=== PATIENT | female | born 1975 | race Caucasian/White ===

== ENCOUNTER → 2016-09-22 | Outpatient (CLI) | payer BC | LOC: RAD 14:48 | PROVIDERS: ATTEND Pain Medicine Interventional Pain Medicine | DX: M25.512 Pain in left shoulder (principal) ==

== ENCOUNTER 2016-10-17 19:56 | Emergency (ER) | payer BC ==
[2016-10-17] MEDS ORDERED: OXYCODONE-ACETAMINOPHEN 5-325 MG TABLET PO ONE (22:18)
[2016-10-17] MEDS ORDERED: PREDNISONE 20 MG TABLET PO ONE (22:19)
[2016-10-17] MEDS ORDERED: VALACYCLOVIR HCL 500 MG TABLET PO ONE (22:19)
--- NOTE | 2016-10-17 22:29 | ER Document Report ---
ED Skin Rash/Insect Bite/Abscs - General Chief Complaint: Rash Stated Complaint: RASH Time seen by provider: 22:15 Notes: Patient is a 41-year-old female that comes emergency department for chief complaint of a rash on her left mid upper back, symptoms started 2-1/2 days ago initially felt like a bruise, developed into painful symptoms, she states now there are fluid-filled areas that are itchy on top of this. Patient has had chickenpox as a child. Patient denies fevers, injury, denies any other symptoms. TRAVEL OUTSIDE OF THE [place] IN LAST 30 DAYS: No - Related Data Allergies/Adverse Reactions: atropine Allergy (Verified 10/17/16 20:33) ketorolac [From Toradol] Allergy (Verified 10/17/16 20:33) midazolam [From Versed] Allergy (Verified 10/17/16 20:33) nalbuphine [From Nubain] Allergy (Verified 10/17/16 20:33) Past Medical History - General Information source: Patient - Social History Smoking Status: Never Smoker Frequency of alcohol use: None Drug Abuse: None Lives with: Family Family History: CAD - Mother of [place] at 56 Patient has suicidal ideation: No Patient has homicidal ideation: No - Past Medical History Cardiac Medical History: Reports: Hx Hypertension Neurological Medical History: Denies: Hx Cerebrovascular Accident Endocrine Medical History: Denies: Hx Diabetes Mellitus Type 2 Renal/ Medical History: Denies: Hx Peritoneal Dialysis GI Medical History: Denies: Hx Liver Failure Musculoskeltal Medical History: Reports Hx Arthritis Psychiatric Medical History: Reports: Hx Depression - current Past Surgical History: Reports: Hx Orthopedic Surgery, Hx Tubal Ligation - Immunizations Immunizations up to date: Yes Review of Systems - Review of Systems Constitutional: No symptoms reported EENT: No symptoms reported Cardiovascular: No symptoms reported Respiratory: No symptoms reported Gastrointestinal: No symptoms reported Genitourinary: No symptoms reported Female Genitourinary: No symptoms reported Musculoskeletal: No symptoms reported Skin: See HPI Hematologic/Lymphatic: No symptoms reported Neurological/Psychological: No symptoms reported Physical Exam - Vital signs Vitals: Temp Pulse Resp BP Pulse Ox 98.5 F 104 H 20 133/78 H 98 10/17/16 20:33 10/17/16 20:33 10/17/16 20:33 10/17/16 20:33 10/17/16 20:33 Interpretation: Normal - General General appearance: Appears well, Alert In distress: None - HEENT Head: Normocephalic, Atraumatic Eyes: Normal Conjunctiva: Normal Extraocular movements intact: Yes Eyelashes: Normal Pupils: PERRL Sinus: Normal Nasal: Normal Mouth/Lips: Normal Mucous membranes: Normal Pharynx: Normal Neck: Normal - Respiratory Respiratory status: No respiratory distress Chest status: Nontender Breath sounds: Normal. No: Decreased air movement, Wheezing Chest palpation: Normal - Cardiovascular Rhythm: Regular. No: Tachycardia Heart sounds: Normal auscultation, S1 appreciated, S2 appreciated Murmur: No - Abdominal Inspection: Normal Distension: No distension Bowel sounds: Normal Tenderness: Nontender. No: Tender, Guarding Organomegaly: No organomegaly - Back Back: Normal, Nontender. No: Tender - Extremities General upper extremity: Normal inspection, Nontender, Normal color, Normal ROM , Normal temperature General lower extremity: Normal inspection, Nontender, Normal color, Normal ROM , Normal temperature, Normal weight bearing. No: Joshua's sign - Neurological Neuro grossly intact: Yes Cognition: Normal Orientation: AAOx4 [place] Coma Scale Eye Opening: Spontaneous Abhilash Coma Scale Verbal: Oriented Abhilash Coma Scale Motor: Obeys Commands [place] Coma Scale Total: 15 Speech: Normal Motor strength normal: LUE, RUE, LLE, RLE Sensory: Normal - Psychological Associated symptoms: Normal affect, Normal mood - Skin Skin Temperature: Warm Skin Moisture: Dry Skin Color: Normal Skin irregularity: other - There is a erythematous patchy vesicular rash over the left upper back in the distribution of the dermatome. No surrounding erythema, no pustules, no induration Course - Re-evaluation Re-evalutation: Examination is consistent with herpes zoster rash, initiating treatment, symptoms been present less than 72 hours. Discussed follow-up, return precautions, patient states understanding and agreement. - Vital Signs Vital signs: Temp Pulse Resp BP Pulse Ox 98.5 F 93 18 116/82 98 10/17/16 20:33 10/17/16 23:20 10/17/16 23:20 10/17/16 23:20 10/17/16 20:33 Discharge - Discharge Clinical Impression: Rash Condition: Stable Disposition: HOME, SELF-CARE Additional Instructions: Examination and symptoms are consistent with a herpes zoster outbreak (shingles) . Take the antiviral as prescribed, take prednisone as prescribed, take the pain medication if needed. Follow-up with your primary care provider for additional management. Return to emergency department for any concerning symptoms. Prescriptions: Oxycodone HCl/Acetaminophen [Percocet 5-325 mg Tablet] 1 - 2 tab PO Q4H PRN #25 tablet PRN Reason: Prednisone [Deltasone 10 mg Tablet] 10 mg PO ASDIR PRN #74 tablet PRN Reason: Valacyclovir HCl [Valtrex] 1,000 mg PO TID #21 tablet Referrals: SHEA ALVARADO MD [Primary Care Provider] - Follow up as needed
[2016-10-17 23:40] VITALS: BP 116/82
== END 2016-10-17 23:20 | disposition home or self-care (01) ==
LOC: ER 19:56
DX: R21 Rash and other nonspecific skin eruption (principal); M54.6 Pain in thoracic spine
CPT/HCPCS: 99282; J7512

== ENCOUNTER 2016-12-13 19:48 | Emergency (ER) | payer BC ==
--- NOTE | 2016-12-13 21:45 | RADIOLOGY REPORT (SQ) ---
EXAM DESCRIPTION: HAND RIGHT 3 VIEWS COMPLETED DATE/TIME: 12/13/2016 9:27 pm REASON FOR STUDY: hand injury COMPARISON: None. EXAM PARAMETERS: NUMBER OF VIEWS: Three views. TECHNIQUE: AP, lateral and oblique radiographic images acquired of the right hand. LIMITATIONS: None. FINDINGS: MINERALIZATION: Normal. BONES: No acute fracture or dislocation. No worrisome bone lesions. JOINTS: No effusions. SOFT TISSUES: No soft tissue swelling. No foreign body. OTHER: No other significant finding. IMPRESSION: NEGATIVE STUDY OF THE RIGHT HAND. NO RADIOGRAPHIC EVIDENCE OF ACUTE INJURY. TECHNICAL DOCUMENTATION: JOB ID: [id number] [employer]- All Rights Reserved
--- NOTE | 2016-12-13 22:02 | ER Document Report ---
ED General - General Chief Complaint: Hand Injury Stated Complaint: RIGHT HAND PAIN Time Seen by Provider: 12/13/16 20:20 Mode of Arrival: Ambulatory Information source: Patient Notes: 41-year-old female presents with complaints of knuckle pain. Patient notes that she cracked his knuckles her whole life and now it is starting to hurt. Patient notes the pain has been constant and worsens when she cracks her knuckle. TRAVEL OUTSIDE OF THE [place] IN LAST 30 DAYS: No - HPI Onset: Other Onset/Duration: Persistent Quality of pain: Achy Severity: Mild Pain Level: 1 Associated symptoms: Other Exacerbated by: Movement Relieved by: Denies Similar symptoms previously: Yes Recently seen / treated by doctor: No - Related Data Allergies/Adverse Reactions: atropine Allergy (Verified 10/17/16 20:33) ketorolac [From Toradol] Allergy (Verified 10/17/16 20:33) midazolam [From Versed] Allergy (Verified 10/17/16 20:33) nalbuphine [From Nubain] Allergy (Verified 10/17/16 20:33) Past Medical History - Social History Smoking Status: Never Smoker Cigarette use (# per day): No Chew tobacco use (# tins/day): No Smoking Education Provided: No Family History: CAD - Mother of [place] at 56 - Past Medical History Cardiac Medical History: Reports: Hx Hypertension Neurological Medical History: Denies: Hx Cerebrovascular Accident Endocrine Medical History: Denies: Hx Diabetes Mellitus Type 2 Renal/ Medical History: Denies: Hx Peritoneal Dialysis GI Medical History: Denies: Hx Liver Failure Musculoskeltal Medical History: Reports Hx Arthritis Psychiatric Medical History: Reports: Hx Depression - current Past Surgical History: Reports: Hx Orthopedic Surgery, Hx Tubal Ligation - Immunizations Immunizations up to date: Yes Hx Diphtheria, Pertussis, Tetanus Vaccination: No Review of Systems - Review of Systems Notes: REVIEW OF SYSTEMS: CONSTITUTIONAL : Denies fever, chills, or sweats. Denies recent illness. EENT: Denies eye, ear, throat, or mouth pain or symptoms. Denies nasal or sinus congestion or discharge. Denies throat, tongue, or mouth swelling or difficulty swallowing. CARDIOVASCULAR: Denies chest pain. Denies palpitations or racing or irregular heart beat. Denies ankle edema. RESPIRATORY: Denies cough, cold, or chest congestion. Denies shortness of breath, difficulty breathing, or wheezing. GASTROINTESTINAL: Denies abdominal pain or distention. Denies nausea, vomiting , or diarrhea. Denies blood in vomitus, stools, or per rectum. Denies black, tarry stools. Denies constipation. GENITOURINARY: Denies difficulty urinating, painful urination, burning, frequency, blood in urine, or discharge. FEMALE GENITOURINARY: Denies vaginal bleeding, heavy or abnormal periods, irregular periods. Denies vaginal discharge or odor. MUSCULOSKELETAL: Admits to knuckle pain SKIN: Denies rash, lesions or sores. HEMATOLOGIC : Denies easy bruising or bleeding. LYMPHATIC: Denies swollen, enlarged glands. NEUROLOGICAL: Denies confusion or altered mental status. Denies passing out or loss of consciousness. Denies dizziness or lightheadedness. Denies headache. Denies weakness or paralysis or loss of use of either side. Denies problems with gait or speech. Denies sensory loss, numbness, or tingling. Denies seizures. PSYCHIATRIC: Denies anxiety or stress. Denies depression, suicidal ideation, or homicidal ideation. ALL OTHER SYSTEMS REVIEWED AND NEGATIVE. PHYSICAL EXAMINATION: GENERAL: Well-appearing, well-nourished and in no acute distress. HEAD: Atraumatic, normocephalic. EYES: Pupils equal round and reactive to light, extraocular movements intact, conjunctiva are normal. ENT: Nares patent, oropharynx clear without exudates. Moist mucous membranes. NECK: Normal range of motion, supple without lymphadenopathy LUNGS: Breath sounds clear to auscultation bilaterally and equal. No wheezes rales or rhonchi. HEART: Regular rate and rhythm without murmurs ABDOMEN: Soft, nontender, nondistended abdomen. No guarding, no rebound. No masses appreciated. Female : deferred Musculoskeletal: Normal range of motion, no pitting or edema. No cyanosis. NEUROLOGICAL: Cranial nerves grossly intact. Normal speech, normal gait. Normal sensory, motor exams PSYCH: Normal mood, normal affect. SKIN: Warm, Dry, normal turgor, no rashes or lesions noted. Dictation was performed using [employer] voice recognition software Physical Exam - Vital signs Vitals: Temp Pulse Resp BP Pulse Ox 98.0 F 107 H 20 127/87 H 99 12/13/16 20:10 12/13/16 20:10 12/13/16 20:10 12/13/16 20:10 12/13/16 20:10 Course - Re-evaluation Re-evalutation: 12/14/16 01:42 Physical examination notes no significant abnormality, patient is worried that cracking her knuckles is causing severe pain. I have encouraged her not to crack her knuckles X-ray noted no acute abnormality no life-threatening issues are noted patient is medically stable After performing a Medical Screening Examination, I estimate there is LOW risk for INTRACRANIAL HEMORRHAGE, UNSTABLE SPINE FRACTURE, CENTRAL CORD SYNDROME, CAUDA EQUINA, THORACIC AORTIC DISSECTION, PNEUMOTHORAX, PERFORATED BOWEL, RUPTURED ABDOMINAL AORTIC ANEURYSM, ACUTE TENDON RUPTURE, COMPARTMENT SYNDROME, or OPEN FRACTURE, thus I consider the discharge disposition reasonable. Also, there is no evidence or peritonitis, sepsis, or toxicity. I have reevaluated this patient multiple times and no significant life threatening changes are noted. The patient and I have discussed the diagnosis and risks, and we agree with discharging home to follow-up with their primary doctor with the understanding that symptoms and presentations can change. We also discussed returning to the Emergency Department immediately if new or worsening symptoms occur. We have discussed the symptoms which are most concerning (e.g., bloody stool, fever, changing or worsening pain, vomiting) that necessitate immediate return. - Vital Signs Vital signs: Temp Pulse Resp BP Pulse Ox 98.3 F 18 L 18 113/84 97 12/13/16 22:25 12/13/16 22:25 12/13/16 22:25 12/13/16 22:25 12/13/16 22:25 - Diagnostic Test Radiology reviewed: Image reviewed, Reports reviewed - No acute fracture no life -threatening issues report given to patient Discharge - Discharge Clinical Impression: knuckle pain Hand pain Qualifiers: Laterality: right Qualified Code(s): M79.641 - Pain in right hand Condition: Stable Disposition: HOME, SELF-CARE Instructions: Contusion (OM) Referrals: SHEA ALVARADO MD [Primary Care Provider] - Follow up tomorrow
[2016-12-13 22:27] VITALS: BP 113/84
== END 2016-12-13 22:24 | disposition home or self-care (01) ==
LOC: ER 19:48
DX: M25.541 Pain in joints of right hand (principal); I10 Essential (primary) hypertension; Z88.4 Allergy status to anesthetic agent; Z88.5 Allergy status to narcotic agent; Z88.8 Allergy status to other drugs, medicaments and biological substances
CPT/HCPCS: 99283

== ENCOUNTER → 2017-01-18 | Outpatient (CLI) | payer BC ==
[~2017-01-18] MED LIST: DIAZEPAM 5 MG TABLET ONE
--- NOTE | 2017-01-18 15:30 | RADIOLOGY REPORT (SQ) ---
EXAM DESCRIPTION: MRI HEAD COMBO COMPLETED DATE/TIME: 01/18/2017 3:09 pm REASON FOR STUDY: VERTIGO H81.41 VERTIGO OF CENTRAL ORIGIN, RIGHT EAR COMPARISON: CT dated 04/29/2016. TECHNIQUE: Multiplanar imaging includes non-contrasted T1, T2, FLAIR, diffusion with ADC map and pos t gadolinium contrast sequences. Additional thin slice images with and without gadolinium contrast a cquired in the posterior fossa. Images stored on PACS. CONTRAST TYPE AND DOSE: 15 mL Multihance. RENAL FUNCTION: GFR > 60. LIMITATIONS: None. FINDINGS: ANATOMY: No anomalies. Normal vascular flow voids. Pituitary fossa normal. CSF SPACES: Normal in size and contour. CEREBRUM: Sulci and gyri normal in size and contour. Normal white matter signal on FLAIR imaging. N o hemorrhage. No edema, masses or mass effect. No enhancing lesions. POSTERIOR FOSSA: No signal alteration. No hemorrhage. No edema, masses or mass effect. Internal eduardo tory canals, cerebello-pontine angles, mastoids normal. No enhancing lesions. Detailed imaging of the 5th, 7th, and 8th nerves and [place] within normal limits. DIFFUSION IMAGING: Negative for acute or sub-acute infarction. ORBITS: No masses. Globes normal. PARANASAL SINUSES: No fluid levels. Mucosa normal. OTHER: No other significant finding. IMPRESSION: NORMAL MRI OF THE BRAIN AND POSTERIOR FOSSA WITHOUT AND WITH INTRAVENOUS GADOLINIUM CONT RAST. TECHNICAL DOCUMENTATION: JOB ID: [id number]- All Rights Reserved
== END ==
LOC: RAD 11:58
PROVIDERS: ATTEND Internal Medicine
DX: H81.41 Vertigo of central origin, right ear (principal)
CPT/HCPCS: 82565; 70553; A9577

== ENCOUNTER 2017-02-10 05:25 | Day surgery (SDC) | payer BC ==
[2017-02-08 11:14] LABS: APPEARANCE,URINE CLEAR; BILIRUBIN,URINE NEGATIVE (NEGATIVE); GLUCOSE, URINE NEGATIVE (NEGATIVE); KETONES,URINE NEGATIVE (NEGATIVE); LEUKOCYTE ESTERASE,URINE NEGATIVE (NEGATIVE); NITRITE,URINE NEGATIVE (NEGATIVE); PROTEIN,URINE NEGATIVE (NEGATIVE); URINE SPECIFIC GRAVITY 1.008; UROBILINOGEN,URINE NEGATIVE mg/dL (<2.0)
[2017-02-08 12:13] LABS: HEMATOCRIT 32.2 % (36.0-47.0); HGB HCT DIFFERENCE 0.8; MEAN CORPUSCULAR HEMOGLOBIN 28.5 pg (27.0-33.4); MEAN CORPUSCULAR VOLUME 84 fl (80-97); RED BLOOD COUNT 3.84 10^6/uL (3.72-5.28); RED CELL DISTRIBUTION WIDTH 14.3 % (11.5-14.0); WHITE BLOOD COUNT 7.6 10^3/uL (4.0-10.5)
[2017-02-08 12:42] LABS: ANION GAP 14 (5-19); BLOOD UREA NITROGEN 14 mg/dL (7-20); CALCIUM 9.5 mg/dL (8.4-10.2); CARBON DIOXIDE 25 mmol/L (22-30); CHLORIDE 99 mmol/L (98-107); CREATININE RESULT 0.93 mg/dL (0.52-1.25); GLUCOSE 119 mg/dL (75-110); POTASSIUM 4.3 mmol/L (3.6-5.0); SODIUM 137.6 mmol/L (137-145)
--- NOTE | 2017-02-08 13:26 | RADIOLOGY REPORT (SQ) ---
EXAM DESCRIPTION: CHEST PA/LATERAL COMPLETED DATE/TIME: 02/08/2017 12:03 pm REASON FOR STUDY: PRE OP COMPARISON: 02/07/2015 EXAM PARAMETERS: NUMBER OF VIEWS: two views TECHNIQUE: Digital Frontal and Lateral radiographic views of the chest acquired. RADIATION DOSE: NA LIMITATIONS: none FINDINGS: LUNGS AND PLEURA: No opacities, masses or pneumothorax. No pleural effusion. MEDIASTINUM AND HILAR STRUCTURES: No masses or contour abnormalities. HEART AND VASCULAR STRUCTURES: Heart normal size. No evidence for failure. BONES: No acute findings. HARDWARE: None in the chest. OTHER: No other significant finding. IMPRESSION: NO SIGNIFICANT RADIOGRAPHIC FINDING IN THE CHEST. TECHNICAL DOCUMENTATION: JOB ID: [id number] [employer]- All Rights Reserved
--- NOTE | 2017-02-08 20:14 | EKG REPORT ---
SEVERITY:- BORDERLINE ECG - SINUS RHYTHM LOW VOLTAGE THROUGHOUT : Confirmed by: Kiran Suresh 08-Feb-2017 20:12:53
[~2017-02-10 05:25] MED LIST changes: +CEFAZOLIN 1 GM/D5W RTU 1 GM/50 ML RTUPB IV PRN; -DIAZEPAM 5 MG TABLET ONE; +LIDOCAINE 0.5% INJ-PF (5 MG/ML) 50 ML SDV SUBCUT PRN
[2017-02-10] MEDS ORDERED: FENTANYL CITRATE INJ/PF 250 MCG/5 ML AMPULE ONE (06:46)
[2017-02-10] MEDS ORDERED: MIDAZOLAM 2 MG/2 ML INJ ONE (06:47)
[2017-02-10] MEDS ORDERED: FENTANYL CITRATE INJ/PF 100 MCG/2 ML AMPUL ONE (06:47)
[2017-02-10] MEDS ORDERED: ACETAMINOPHEN 0 ML IV ONE (06:48)
[2017-02-10] MEDS ORDERED: PROPOFOL INJ 200 MG/20 ML VIAL IV ONE (06:48)
[2017-02-10] MEDS ORDERED: IBUPROFEN INJ 800 MG/8 ML VIAL IV ONE (06:48)
[2017-02-10] MEDS ORDERED: MORPHINE SULFATE 10 MG/ML INJ ONE (06:49)
[2017-02-10] MEDS ORDERED: LIDOCAINE 2%/EPINEPHRINE INJ 20 ML VIAL ONE (07:30)
[2017-02-10] MEDS ORDERED: FENTANYL CITRATE INJ/PF 100 MCG/2 ML AMPUL IV PRN ×3 (08:12)
[2017-02-10] MEDS ORDERED: ONDANSETRON HCL INJ/PF 4 MG/2 ML SDV IV PRN (08:12)
--- NOTE | 2017-02-10 09:02 | OPERATIVE REPORT E ---
Operative Report NAME: CHRIST HONEYCUTT : 1975 AGE: 42Y DATE OF SURGERY: 02/10/2017 ROOM: PREOPERATIVE DIAGNOSES: 1. Menorrhagia. 2. History of high grade KRISTINA Pap's unresponsive to cryotherapy, conization, and multiple treatments. POSTOPERATIVE DIAGNOSES: 1. Menorrhagia. 2. History of high grade KRISTINA Pap's unresponsive to cryotherapy, conization, and multiple treatments. 3. Uterine fibroid. PROCEDURE: Total vaginal hysterectomy with Ryan culdoplasty. SURGEON: MACIEJ APONTE M.D. COMPLICATIONS: None. ANESTHESIA: General endotracheal. FINDINGS: A normal appearing uterus with a subserosal fibroid. Normal appearing tubes and ovaries are appreciated. Bilateral Hulka clips were noted and removed during the case and handed off the operative field. INDICATIONS FOR PROCEDURE: Patient had been unresponsive to usual outpatient management for MARGARITA lesions. She had a positive margin on her LEEP with abnormal bleeding and recurrent MARGARITA on Pap smears. She elected to proceed to definitive therapy. The usual risks of bleeding, infection, anesthesia, damage to organs and tissues had been discussed and the patient understood. PROCEDURE: Patient was taken to the operating room and was placed in the modified lithotomy position after adequate anesthesia ascertained. Prepped and draped in the usual manner for a vaginal hysterectomy. After EUA had been performed, surgical timeout performed, Cardoso catheter inserted in the bladder. Posterior colpotomy was performed without difficulty and the uterosacral ligaments were cross-clamped, cut, suture ligated, and held. The cervix was circumscribed and the bladder was advanced sequentially as the LigaSure Advance device was used for cautery of the cardinal ligament up to the level of the uterine vessels and up to the level of the upper fundus. The anterior cul-de-sac was entered without difficulty during this aspect of the procedure. A Duncan retractor was placed, reflecting the ureters throughout the case. The uterus was brought into the operative field. The upper pedicles were suture ligated and cauterized inclusive of the Hulka clips bilaterally. Ovaries were well visualized and noted to be normal. The Ryan culdoplasty stitches were placed and held. The vagina was then closed in an anterior/posterior fashion with noted hemostasis assured. Ryan culdoplasty stitch was tied at the end of the case. Patient awaken and taken to recovery in stable condition. Estimated blood loss approximately 50 mL. DICTATING PHYSICIAN: MACIEJ APONTE M.D. [id number] PHY#: [id number] ID: [id number] JOB#: [id number] ACCT: [id number] cc:MACIEJ APONTE M.D. >
[2017-02-10] MEDS ORDERED: PROMETHAZINE HCL INJ 25 MG/1 ML VIAL IM PRN (09:30)
[2017-02-10] MEDS ORDERED: MORPHINE INJ 8 MG DOSE IM PRN (09:30)
[2017-02-10] MEDS ORDERED: MORPHINE INJ 6 MG DOSE (EDIT ROUTE) INJ PRN (09:30)
[2017-02-10] MEDS ORDERED: ACETAMINOPHEN 100 ML IV ONE (09:35)
[2017-02-10] MEDS ORDERED: SCOPOLAMINE HYDROBROMIDE 1.5 MG PATCH.TD72 ONE (09:54)
[2017-02-10] MEDS ORDERED: METOCLOPRAMIDE HCL INJ/PF 10 MG/2 ML SDV ONE (09:54)
[2017-02-10] MEDS ORDERED: ONDANSETRON HCL INJ/PF 4 MG/2 ML SDV ONE (09:56)
[2017-02-10] MEDS ORDERED: DEXAMETHASONE SOD PHOSPHATE INJ 4 MG/1 ML VIAL ONE (09:56)
[2017-02-10] MEDS ORDERED: SUCCINYLCHOLINE CHLORIDE INJ 200 MG/10 ML VIAL ONE (09:56)
[2017-02-10] MEDS ORDERED: GLYCOPYRROLATE INJ 0.4 MG/2 ML VIAL ONE (09:56)
[2017-02-10] MEDS ORDERED: LIDOCAINE 2% INJ-PF (20 MG/ML) 10 ML AMPUL ONE (09:56)
[2017-02-10] MEDS ORDERED: (PENDING PHARMACY ID) (Quetiapine Fumarate [Seroquel] 200 MG) PO SCH (10:00)
[2017-02-10] MEDS ORDERED: (PENDING PHARMACY ID) (Lisinopril/Hydrochlorothiazide [Lisinopril-Hctz 20-12.5 Mg Tab] 1 E PO SCH (10:00)
[2017-02-10] MEDS ORDERED: AMITRIPTYLINE HCL 25 MG TABLET PO SCH (10:00)
[2017-02-10] MEDS: MORPHINE INJ 4 MG DOSE (EDIT ROUTE) INJ PRN ×2 (11:01→13:08)
[2017-02-10] MEDS: IBUPROFEN 800 MG TABLET PO SCH ×2 (13:06→20:53)
[2017-02-10] MEDS: LACTATED RINGERS 1000 ML IV PRN ×2 (13:46→22:38)
[2017-02-10] MEDS: CEFAZOLIN 1 GM RTU (EDIT START TIME) IV SCH ×2 (14:50→20:08)
[2017-02-10] MEDS: OXYCODONE-ACETAMINOPHEN 5-325 MG TABLET PO PRN ×2 (16:51→20:53)
[2017-02-10] MEDS ORDERED: QUETIAPINE FUMARATE 100 MG TABLET PO SCH (22:00)
[2017-02-11] MEDS: IBUPROFEN 800 MG TABLET PO SCH (04:52)
[2017-02-11] MEDS: OXYCODONE-ACETAMINOPHEN 5-325 MG TABLET PO PRN (04:53)
[2017-02-11 06:30] LABS: MEAN CORPUSCULAR HEMOGLOBIN 28.1 pg (27.0-33.4); MEAN CORPUSCULAR HGB CONC 33.4 g/dL (32.0-36.0); MEAN CORPUSCULAR VOLUME 84 fl (80-97); RED BLOOD COUNT 3.21 10^6/uL (3.72-5.28); RED CELL DISTRIBUTION WIDTH 14.4 % (11.5-14.0)
[2017-02-11] MEDS ORDERED: LANSOPRAZOLE 30 MG TAB.RAP.DR PO SCH (08:00)
[2017-02-11 09:00] VITALS: BP 105/74
[2017-02-11] MEDS ORDERED: HYDROCHLOROTHIAZIDE 12.5 MG CAPSULE PO SCH (10:00)
[2017-02-11] MEDS ORDERED: QUETIAPINE FUMARATE 100 MG TABLET PO SCH ×2 (10:00→22:00)
[2017-02-11] MEDS ORDERED: LISINOPRIL 10 MG TABLET PO SCH (10:00)
== END 2017-02-11 09:24 | disposition home or self-care (01) ==
LOC: OROUT 05:25 → 2N 10:09 → UNDOADMIN 10:59 → OROUT 02-11 09:24 → UNDODISIN 02-11 09:24
PROVIDERS: ATTEND Specialist
PROC: 0UTC7ZZ Resection of Cervix, Via Natural or Artificial Opening (ICD-10-PCS; 2017-02-10)
PROC: 0UT57ZZ Resection of Right Fallopian Tube, Via Natural or Artificial Opening (ICD-10-PCS; 2017-02-10)
PROC: 0UT97ZZ Resection of Uterus, Via Natural or Artificial Opening (ICD-10-PCS; principal; 2017-02-10 07:15)
DX: N94.5 Secondary dysmenorrhea (principal); N87.0 Mild cervical dysplasia; N84.0 Polyp of corpus uteri; D25.9 Leiomyoma of uterus, unspecified; N92.0 Excessive and frequent menstruation with regular cycle; R01.1 Cardiac murmur, unspecified; I10 Essential (primary) hypertension; M06.9 Rheumatoid arthritis, unspecified; F32.9 Major depressive disorder, single episode, unspecified; E66.9 Obesity, unspecified; Z68.30 Body mass index [BMI] 30.0-30.9, adult; Z79.891 Long term (current) use of opiate analgesic; Z79.899 Other long term (current) drug therapy
CPT/HCPCS: 93005; 86900; 86901; 36415 ×2; 86850; 82962; 85027 ×2; 81025; 80048; 81001; 88307 ×2; 71020; 94799; 93010; 58262; J2250; J0690; J1100; J3010 ×2; J3490 ×2; J2765; J2270; J0330; J2405; J7120; J2704; J0131; 944; J1741

== ENCOUNTER 2017-05-31 22:16 | Emergency (ER) | payer BC ==
[2017-06-01] MEDS ORDERED: NORMAL SALINE 1000 ML 1,000 ML IV ONE
[2017-06-01 00:12] LABS: ABSOLUTE BASOPHILS # (AUTO) 0.1 10^3/uL (0.0-0.2); ABSOLUTE EOSINOPHILS # (AUTO) 0.1 10^3/uL (0.0-0.6); ABSOLUTE LYMPHOCYTES (AUTO) 2.9 10^3/uL (0.5-4.7); ABSOLUTE MONOCYTES (AUTO) 0.7 10^3/uL (0.1-1.4); ABSOLUTE NEUT (AUTO) 10.3 10^3/uL (1.7-8.2); BASOPHILS % (AUTO) 0.6 % (0-2); EOSINOPHILS % (AUTO) 0.9 % (0-6); HEMOGLOBIN 12.2 g/dL (12.0-15.5); HGB HCT DIFFERENCE -0.4; LYMPHOCYTES % (AUTO) 20.6 % (13-45); MEAN CORPUSCULAR HEMOGLOBIN 27.6 pg (27.0-33.4); MEAN CORPUSCULAR HGB CONC 32.9 g/dL (32.0-36.0); MEAN CORPUSCULAR VOLUME 84 fl (80-97); MONOCYTES % (AUTO) 4.7 % (3-13); RED BLOOD COUNT 4.41 10^6/uL (3.72-5.28); RED CELL DISTRIBUTION WIDTH 15.1 % (11.5-14.0); SEGMENTED NEUTROPHILS % (AUTO) 73.2 % (42-78); WHITE BLOOD COUNT 14.1 10^3/uL (4.0-10.5)
--- NOTE | 2017-06-01 00:25 | ER Document Report ---
ED General - General Chief Complaint: Syncope Stated Complaint: WEAKNESS Time Seen by Provider: 05/31/17 23:59 Notes: Patient is a 42-year-old female without prior cardiac history who presents after she had an episode of syncope while in the shower. Patient states that all day today she felt intermittently lightheaded when she would go from a sitting to standing position and felt as though she was about to pass out several times during the day. She states when she was standing in the shower today she became lightheaded, nauseated and felt like she was about to pass out. She states she stepped out of the shower, was trying dry herself off when she lost consciousness. She denies sustaining any injury during that episode of syncope. She states that since that time she has felt "fuzzy" in her head as well as slightly dehydrated. She does note that she has not drank hardly any fluids today. She has no history of similar symptoms in the past. Nothing improves or worsens her symptoms. She has not seen her primary care doctor regarding today's concerns. She denies any associated chest pain, shortness of breath, headache, neck pain, unilateral leg swelling, hemoptysis, or abdominal pain. She denies any prior history of DVT or pulmonary embolus. TRAVEL OUTSIDE OF THE [place] IN LAST 30 DAYS: No - Related Data Allergies/Adverse Reactions: atropine Allergy (Severe, Verified 05/31/17 22:17) violent ketorolac [From Toradol] Allergy (Severe, Verified 05/31/17 22:17) tremors midazolam [From Versed] Allergy (Severe, Verified 05/31/17 22:17) violent nalbuphine [From Nubain] Allergy (Severe, Verified 05/31/17 22:17) violent Past Medical History - General Information source: Patient - Social History Smoking Status: Never Smoker Frequency of alcohol use: None Drug Abuse: None Lives with: Spouse/Significant other Family History: CAD - Mother of [place] at 56 Patient has suicidal ideation: No Patient has homicidal ideation: No - Past Medical History Cardiac Medical History: Reports: Hx Hypertension - on meds Denies: Hx Coronary Artery Disease, Hx Heart Attack Pulmonary Medical History: Denies: Hx Asthma, Hx Bronchitis, Hx COPD, Hx Pneumonia Neurological Medical History: Denies: Hx Cerebrovascular Accident, Hx Seizures Endocrine Medical History: Denies: Hx Diabetes Mellitus Type 2 Renal/ Medical History: Denies: Hx Peritoneal Dialysis GI Medical History: Denies: Hx Liver Failure Musculoskeltal Medical History: Denies Hx Arthritis Psychiatric Medical History: Reports: Hx Depression - current Past Surgical History: Reports: Hx Hysterectomy, Hx Orthopedic Surgery, Hx Tubal Ligation - Immunizations Immunizations up to date: Yes Hx Diphtheria, Pertussis, Tetanus Vaccination: No Review of Systems - Review of Systems Notes: Constitutional: Negative for fever. HENT: Negative for sore throat. Eyes: Negative for visual changes. Cardiovascular: Negative for chest pain. Positive for syncope Respiratory: Negative for shortness of breath. Gastrointestinal: Negative for abdominal pain, vomiting or diarrhea. Genitourinary: Negative for dysuria. Musculoskeletal: Negative for back pain. Skin: Negative for rash. Neurological: Negative for headaches, weakness or numbness. 10 point ROS negative except as marked above and in HPI. Physical Exam - Vital signs Vitals: Temp Pulse BP Pulse Ox 97.7 F 124 H 90/57 L 99 05/31/17 22:40 05/31/17 22:40 05/31/17 22:40 05/31/17 22:40 Interpretation: Hypotensive, Tachycardic Notes: PHYSICAL EXAMINATION: GENERAL: Well-appearing, well-nourished and in no acute distress. HEAD: Atraumatic, normocephalic. EYES: Pupils equal round and reactive to light, extraocular movements intact, sclera anicteric, conjunctiva are normal. ENT: nares patent, oropharynx clear without exudates. Dry t mucous membranes. NECK: Normal range of motion, supple without lymphadenopathy LUNGS: Breath sounds clear to auscultation bilaterally and equal. No wheezes rales or rhonchi. HEART: Regular tachycardia without murmurs ABDOMEN: Soft, nontender, normoactive bowel sounds. No guarding, no rebound. No masses appreciated. EXTREMITIES: Normal range of motion, no pitting or edema. No cyanosis. NEUROLOGICAL: No focal neurological deficits. Moves all extremities spontaneously and on command. PSYCH: Normal mood, normal affect. SKIN: Warm, Dry, normal turgor, no rashes or lesions noted. Course - Re-evaluation Re-evalutation: 06/01/17 00:25 Presentation of syncope of unclear etiology although given patient's report of positional lightheadedness all day today as well as a mild acute kidney injury on chemistries I do suspect that this is due to dehydration. Patient normotensive, alert, without focal neurologic deficits at time of arrival. Denies syncope was during exertion. No preceding symptoms of palpitations, chest pain, or shortness of breath. Patient asymptomatic at time of arrival. EKG is without evidence of HCOM, right heart strain, ST changes to suggest ischemia, prolong QTc, delta wave, epsilon wave, or Brugada syndrome. Patient denies any family history of sudden cardiac , personal history of of structural heart disease. Patient denies any symptoms to suggest an acute PE, NC , TAD, SAH, seizure, or acute GI bleed as the etiology of their syncope today. On exam, no murmurs to suggest critical aortic stenosis as possible etiology. Based on overall clinical history, exam findings, vitals, and patients appearance, I feel it is safe for patient to be discharged home at this time with close outpatient follow-up and strict return precautions. Patient is in agreement with this plan, has verbalized indications for return to ED, and questions have been answered. - Vital Signs Vital signs: Temp Pulse Resp BP Pulse Ox 97.7 F 120 H 18 87/51 L 98 05/31/17 22:41 05/31/17 23:45 05/31/17 23:45 05/31/17 23:45 05/31/17 23:45 - Laboratory Result Diagrams: 05/31/17 23:55 05/31/17 23:55 Laboratory results interpreted by me: 05/31/17 05/31/17 23:55 23:55 WBC 14.1 H RDW 15.1 H Plt Count 466 H Absolute Neutrophils 10.3 H Sodium 136.9 L Chloride 95 L BUN 28 H Creatinine 1.35 H Est GFR ( Amer) 52 L Est GFR (Non-Af Amer) 43 L - EKG Interpretation by Me Additional EKG results interpreted by me: 06/01/17 01:12 Normal sinus rhythm. Rate 89. No ST elevations or depressions. QTC is 463. Discharge - Discharge Clinical Impression: Dehydration Syncope Qualifiers: Syncope type: unspecified Qualified Code(s): R55 - Syncope and collapse Condition: Good Disposition: HOME, SELF-CARE Additional Instructions: You were seen today after an episode of passing out. Your EKG here is normal. At this time, we do not feel that your episode of passing out was from any life- threatening cause. Your labs suggest that this is likely due to dehydration and you have been provided IV fluids while here in the emergency department. Please drink plenty of fluids over the next several days. Return to emergency department if you have any further episodes of syncope, headache, weakness, numbness, chest pain, or shortness of breath. Please follow up closely with your primary care physician. Referrals: SHEA ALVARADO MD [Primary Care Provider] - Follow up as needed
[2017-06-01 00:38] LABS: ANION GAP 17 (5-19); BLOOD UREA NITROGEN 28 mg/dL (7-20); CARBON DIOXIDE 25 mmol/L (22-30); CHLORIDE 95 mmol/L (98-107); CREATININE RESULT 1.35 mg/dL (0.52-1.25); GLUCOSE 106 mg/dL (75-110); POTASSIUM 4.6 mmol/L (3.6-5.0); SODIUM 136.9 mmol/L (137-145)
[2017-06-01 01:31] VITALS: BP 101/75
--- NOTE | 2017-06-01 08:08 | EKG REPORT ---
SEVERITY:- NORMAL ECG - SINUS RHYTHM : Confirmed by: Kiran Suresh 01-Jun-2017 08:07:52
== END 2017-06-01 01:33 | disposition home or self-care (01) ==
LOC: ER 22:16
DX: E86.0 Dehydration (principal); R55 Syncope and collapse; R53.1 Weakness; I10 Essential (primary) hypertension; Z90.710 Acquired absence of both cervix and uterus
CPT/HCPCS: 93005; 99284; 36415; 84703; 85025; 80048; 93010; J7030; 80053; 82550; 82553; 84484; 96360

== ENCOUNTER 2017-07-04 00:03 | Emergency (ER) | payer BC ==
[2017-07-04 01:06] VITALS: BP 112/72
--- NOTE | 2017-07-04 01:35 | ER Document Report ---
HPI - HPI Patient complains to provider of: Left shoulder pain Onset: Other - 1 month Onset/Duration: Persistent Quality of pain: Achy, Throbbing Pain Level: 4 Context: Patient states that she has had a history of chronic right shoulder joint pain. Patient states because of this she has been compensating with her left upper extremity. Patient reports left shoulder joint pain for the past month. Patient states pain will radiate down to the level of her elbow. Patient denies any fever. Patient denies any new injury. Patient does take chronic narcotics for right shoulder joint pain, but denies any improvement in her left shoulder joint pain. Patient is concerned something is wrong and would like to have a shoulder x-ray. Associated Symptoms: denies: Fever Exacerbated by: Movement Relieved by: Denies Similar symptoms previously: No Recently seen / treated by doctor: No - ROS ROS below otherwise negative: Yes Systems Reviewed and Negative: Yes All other systems reviewed and negative - CONSTITUTIONAL Constitutional: DENIES: Fever - NEURO Neurology: DENIES: Headache, Weakness - GASTROINTESTINAL Gastrointestinal: DENIES: Nausea - REPRODUCTIVE Reproductive: DENIES: : - MUSCULOSKELETAL Musculoskeletal: REPORTS: Extremity pain - left shoulder. DENIES: Back Pain - DERM Skin Color: Normal Skin Problems: None Past Medical History - General Information source: Patient - Social History Smoking Status: Unknown if Ever Smoked Frequency of alcohol use: None Drug Abuse: None Occupation: None Family History: CAD - Mother of [place] at 56 Patient has suicidal ideation: No Patient has homicidal ideation: No - Past Medical History Cardiac Medical History: Reports: Hx Hypertension - on meds Denies: Hx Coronary Artery Disease, Hx Heart Attack Pulmonary Medical History: Denies: Hx Asthma, Hx Bronchitis, Hx COPD, Hx Pneumonia Neurological Medical History: Denies: Hx Cerebrovascular Accident, Hx Seizures Endocrine Medical History: Denies: Hx Diabetes Mellitus Type 2 Renal/ Medical History: Denies: Hx Peritoneal Dialysis Malignancy Medical History: Reports: Hx Cervical Cancer GI Medical History: Denies: Hx Liver Failure Musculoskeltal Medical History: Denies Hx Arthritis Psychiatric Medical History: Reports: Hx Depression - current Past Surgical History: Reports: Hx Hysterectomy, Hx Orthopedic Surgery, Hx Tubal Ligation - Immunizations Immunizations up to date: Yes Hx Diphtheria, Pertussis, Tetanus Vaccination: No Vertical Provider Document - CONSTITUTIONAL Agree With Documented VS: Yes Exam Limitations: No Limitations General Appearance: WD/WN, No Apparent Distress - INFECTION CONTROL TRAVEL OUTSIDE OF THE [place] IN LAST 30 DAYS: No - HEENT HEENT: Atraumatic, Normocephalic - NECK Neck: Normal Inspection, Supple. negative: Lymphadenopathy-Left, Lymphadenopathy-Right Notes: No posterior cervical midline tenderness, step-off or deformity - RESPIRATORY Respiratory: Breath Sounds Normal, No Respiratory Distress O2 Sat by Pulse Oximetry: 98 - CARDIOVASCULAR Cardiovascular: Regular Rate, Regular Rhythm, No Murmur Pulses: Normal: Radial - BACK Back: Normal Inspection - MUSCULOSKELETAL/EXTREMETIES Musculoskeletal/Extremeties: MAEW, FROM, Tender - Left shoulder joint tenderness over glenohumoral joint, no dislocation, no deformity. Tenderness increases with extension and abduction. Normal skin color and temperature overlying joint, No Edema - NEURO Level of Consciousness: Awake, Alert, Appropriate Motor/Sensory: No Motor Deficit - DERM Integumentary: Warm, Dry, No Rash Course - Re-evaluation Re-evalutation: 07/04/17 01:42 x ray reviewed, no obvious bony abnormality. Patient encouraged to follow-up with primary doctor or orthopedic doctor for further evaluation and possible advanced imaging. Patient encouraged to continue gentle range of motion exercises. - Vital Signs Vital signs: Temp Pulse Resp BP Pulse Ox 97.7 F 106 H 18 112/72 98 07/04/17 01:05 07/04/17 01:05 07/04/17 01:05 07/04/17 01:05 07/04/17 01:05 - Diagnostic Test Radiology reviewed: Pending, Image reviewed Discharge - Discharge Clinical Impression: Pain, joint, shoulder, left Condition: Stable Disposition: HOME, SELF-CARE Instructions: Sprain ([facility]) Additional Instructions: Return immediately for any new or worsening symptoms Followup with your primary care provider, call tomorrow to make a followup appointment Follow-up with orthopedic doctor for further evaluation, call tomorrow for an appointment Referrals: [facility] [Provider Group] - Follow up as needed
--- NOTE | 2017-07-04 01:47 | RADIOLOGY REPORT (SQ) ---
EXAM DESCRIPTION: SHOULDER LEFT 2 OR MORE VIEWS CLINICAL HISTORY: shoulder joint pain COMPARISON: None. FINDINGS: 3 views of the left shoulder. No acute fracture or dislocation. Normal osseous mineralization. No left-sided rib fractures. IMPRESSION: 1. No acute fracture or dislocation.
== END 2017-07-04 01:48 | disposition home or self-care (01) ==
LOC: ER 00:03
DX: M25.512 Pain in left shoulder (principal); I10 Essential (primary) hypertension; Z90.710 Acquired absence of both cervix and uterus; Z85.41 Personal history of malignant neoplasm of cervix uteri
CPT/HCPCS: 99283

== ENCOUNTER 2017-07-25 01:05 | Emergency (ER) | payer BC ==
--- NOTE | 2017-07-25 01:48 | ER Document Report ---
ED Hip Pain/Injury - General Chief Complaint: Hip Pain Stated Complaint: RIGHT HIP PAIN Time Seen by Provider: 07/25/17 01:39 Notes: Patient is a 42-year-old female presents emergency department complaining of right lower back with associated sciatica and right thigh pain. Patient states that she has a history of this ever since she had kids over the course of years but got worse over the past couple of days. She denies any recent activities or straining herself from the past couple of days. She states that she does have a history of chronic pain for her right shoulder that she takes 10 mg Vicodin 4 times a day from [facility]. She states that for her recent lower back pain is gotten worse over the past couple days to make an assignment a difference. She states that she took 1 200 mg Motrin without any significant improvement. Patient denies any recent fall, trauma, urinary/stool incontinence, saddle anesthesia, fever. Denies any weakness or inability to ambulate. She does admit to history of right hip osteoarthritis and bursitis. TRAVEL OUTSIDE OF THE [place] IN LAST 30 DAYS: No - Related Data Allergies/Adverse Reactions: atropine Allergy (Severe, Verified 07/25/17 01:06) violent ketorolac [From Toradol] Allergy (Severe, Verified 07/25/17 01:06) tremors midazolam [From Versed] Allergy (Severe, Verified 07/25/17 01:06) violent nalbuphine [From Nubain] Allergy (Severe, Verified 07/25/17 01:06) violent Past Medical History - Social History Smoking Status: Never Smoker Family History: CAD - Mother of [place] at 56 - Past Medical History Cardiac Medical History: Reports: Hx Hypertension - on meds Denies: Hx Coronary Artery Disease, Hx Heart Attack Pulmonary Medical History: Denies: Hx Asthma, Hx Bronchitis, Hx COPD, Hx Pneumonia Neurological Medical History: Denies: Hx Cerebrovascular Accident, Hx Seizures Endocrine Medical History: Denies: Hx Diabetes Mellitus Type 2 Renal/ Medical History: Denies: Hx Peritoneal Dialysis Malignancy Medical History: Reports: Hx Cervical Cancer GI Medical History: Denies: Hx Liver Failure Musculoskeltal Medical History: Denies Hx Arthritis Psychiatric Medical History: Reports: Hx Depression - current Past Surgical History: Reports: Hx Hysterectomy, Hx Orthopedic Surgery, Hx Tubal Ligation - Immunizations Immunizations up to date: Yes Hx Diphtheria, Pertussis, Tetanus Vaccination: No Review of Systems - Review of Systems Constitutional: No symptoms reported Cardiovascular: No symptoms reported Respiratory: No symptoms reported Gastrointestinal: No symptoms reported Musculoskeletal: See HPI Neurological/Psychological: No symptoms reported -: Yes All other systems reviewed and negative Physical Exam - Vital signs Vitals: Temp Pulse Resp BP Pulse Ox 98.0 F 118 H 16 125/79 100 07/25/17 01:07/25/17 01:07/25/17 01:07/25/17 01:07/25/17 01:26 - Notes Notes: PHYSICAL EXAM GENERAL: Alert, interacts well. Back: Right paralumbar muscular tenderness to palpation with pain reproducible. Tenderness also along the right IT band with pain reproducible palpation. Otherwise bilateral lower extremity strength 5 out of 5 bilaterally. Patient able to ambulate without assistance. Normal sensory, motor and reflex exams. EXTREMITIES: Moves all 4 extremities spontaneously. No edema, radial and dorsalis pedis pulses 2/4 bilaterally. No cyanosis. NEUROLOGICAL: Alert and oriented x4. Normal speech. PSYCH: Normal affect, normal mood. SKIN: Warm, dry, normal turgor. No rashes or lesions noted. Course - Re-evaluation Re-evalutation: 07/25/17 03:05 Patient is a 42-year-old female who is hemodynamically stable, no acute distress and afebrile. The patient presents with low back pain without signs of spinal cord compression, cauda equina syndrome, infection, aneurysm, or other serious etiology. The patient is neurologically intact. Given the extremely low risk of these diagnoses further testing and evaluation for these possibilities does not appear to be indicated at this time. The patient has been instructed to return if the symptoms worsen or change in any way. - Vital Signs Vital signs: Temp Pulse Resp BP Pulse Ox 98.0 F 118 H 16 125/79 100 07/25/17 01:07/25/17 01:07/25/17 01:07/25/17 01:07/25/17 01:26 Discharge - Discharge Clinical Impression: Low back pain Qualifiers: Chronicity: chronic Back pain laterality: right Sciatica presence: with sciatica Sciatica laterality: sciatica of right side Qualified Code(s): M54.41 - Lumbago with sciatica, right side; G89.29 - Other chronic pain; G89.29 - Other chronic pain Condition: Good Disposition: HOME, SELF-CARE Additional Instructions: LOW BACK PAIN: Three out of every four people will have an episode of disabling back pain during their lifetime. Most commonly the pain is due to straining of the muscles and ligaments in the low back. Usual treatment includes: (1) Rest on a firm surface. Avoid lying on your stomach. (2) Ice pack the painful area. After a few days, gentle heat may be used intermittently to relax the area, or ice packs can be continued. (3) Medication may be needed -- muscle relaxers and antiinflammatory medicines are commonly used. (4) As the back improves, exercises are prescribed to strengthen the back and abdominal muscles. Your doctor will advise you on the proper care for your back at each stage in your recovery. You may be better in a few days -- or healing may take several weeks. If new symptoms of a "herniated disc" (radiation of pain, numbness, or tingling down the back of the leg or weakness in the leg) occur, you should be re-examined. Further testing may be necessary. MUSCLE RELAXERS: Muscle relaxing medications are usually prescribed for acute muscle spasm or injury to the neck and back. They are often combined with antiinflammatory pain medication for increased relief. You may stop the muscle relaxer when the pain and stiffness have improved. Start the medication again if spasms recur. Muscle relaxers may cause drowsiness, especially with the first dose. Do not operate machinery or drive while under the effects of the medication. Most muscle relaxers last up to 24 hours. Do not combine the medication with alcohol. ICE PACKS: Apply ice packs frequently against the painful area. Many different schedules are recommended, such as "20 minutes on, 20 minutes off" or "one hour ice, two hours rest." If you need to work, you may need to go longer between ice treatments. You should plan to have the area ice packed AT LEAST one fourth of the time. The ice should be applied over the wrap, tape, or splint, or over a layer of cloth -- not directly against the skin. Some ice bags have a built-in cloth and can be put directly on the skin. WARM PACKS: After approximately two days, apply gentle heat (such as a heating pad or hot water bottle) for about 20 to 30 minutes about every two hours -- at least four times daily. Warmth and elevation will help you make a more rapid recovery , and will ease the pain considerably. Do not use HOT heat, and never apply heat for longer than 30 minutes. The continuous heat can invisibly damage skin and muscles -- even when no burn is seen on the surface. Damaged muscles can make you MORE sore. FOLLOW-UP CARE: If you have been referred to a physician for follow-up care, call the physician s office for an appointment as you were instructed or within the next two days. If you experience worsening or a significant change in your symptoms, notify the physician immediately or return to the Emergency Department at any time for re-evaluation. Prescriptions: Cyclobenzaprine HCl [Flexeril 10 mg Tablet] 10 mg PO TIDP PRN #15 tab PRN Reason: Ibuprofen [Motrin 800 mg Tablet] 800 mg PO Q8H PRN #30 tab PRN Reason: Referrals: SHEA ALVARADO MD [Primary Care Provider] - Follow up in 1 week JASON BANUELOS MD [ACTIVE STAFF] - Follow up in 1 week
[2017-07-25] MEDS ORDERED: IBUPROFEN 800 MG TABLET PO ONE (01:56)
--- NOTE | 2017-07-25 02:51 | RADIOLOGY REPORT (SQ) ---
EXAM DESCRIPTION: L SPINE WHOLE COMPLETED DATE/TIME: 07/25/2017 2:35 am REASON FOR STUDY: sciatica right, back pain COMPARISON: Abdominal series 04/29/2016, sacrum x-ray 02/23/2016. NUMBER OF VIEWS: Five views including obliques. TECHNIQUE: AP, lateral, oblique, and sacral radiographic images acquired of the lumbar spine. LIMITATIONS: None. FINDINGS: MINERALIZATION: Normal. SEGMENTATION: Normal. No transitional anatomy. ALIGNMENT: Normal. VERTEBRAE: Maintained height. No compression fracture. DISCS: Mild multilevel degenerative disc disease and osteophytosis within the visualized lower thorac ic and lumbar spine. POSTERIOR ELEMENTS: Pedicles and facets are intact. No pars defect. HARDWARE: None in the spine. PARASPINAL SOFT TISSUES: Normal. PELVIS: SI joints intact. OTHER: Large amount of stool within the visualized colon. IMPRESSION: 1. No acute radiographic finding at the lumbar spine. Mild degenerative changes. 2. Large amount of stool within the visualized colon. TECHNICAL DOCUMENTATION: JOB ID: [id number] [employer]- All Rights Reserved
[2017-07-25 03:39] VITALS: BP 113/69
== END 2017-07-25 03:35 | disposition home or self-care (01) ==
LOC: ER 01:05
DX: G89.29 Other chronic pain (principal); M54.41 Lumbago with sciatica, right side; I10 Essential (primary) hypertension; Z90.710 Acquired absence of both cervix and uterus
CPT/HCPCS: 72110; 99283

== ENCOUNTER 2017-08-17 11:51 | Emergency (ER) | payer BC ==
--- NOTE | 2017-08-17 12:48 | ER Document Report ---
ED General - General Chief Complaint: Abdominal Distention Stated Complaint: STOMACH PAIN Time Seen by Provider: 08/17/17 12:48 Mode of Arrival: Ambulatory Information source: Patient Notes: 42-year-old female history of constipation who has a bowel movement every 2-3 weeks presents with complaints of abdominal distention constipation symptoms. Patient denies any fevers or chills denies any vomiting notes she has had been having diarrhea today. pt feels bloated TRAVEL OUTSIDE OF THE [place] IN LAST 30 DAYS: No - HPI Onset: Yesterday Onset/Duration: Persistent Quality of pain: Cramping Severity: Mild Pain Level: 1 Associated symptoms: Diarrhea, Other Exacerbated by: Denies Relieved by: Denies Similar symptoms previously: Yes Recently seen / treated by doctor: Yes - Related Data Allergies/Adverse Reactions: atropine Allergy (Severe, Verified 08/17/17 11:51) violent ketorolac [From Toradol] Allergy (Severe, Verified 08/17/17 11:51) tremors midazolam [From Versed] Allergy (Severe, Verified 08/17/17 11:51) violent nalbuphine [From Nubain] Allergy (Severe, Verified 08/17/17 11:51) violent Past Medical History - Social History Smoking Status: Never Smoker Cigarette use (# per day): No Chew tobacco use (# tins/day): No Smoking Education Provided: No Frequency of alcohol use: None Drug Abuse: None Family History: CAD - Mother of [place] at 56 Patient has suicidal ideation: No Patient has homicidal ideation: No - Past Medical History Cardiac Medical History: Reports: Hx Hypertension - on meds Denies: Hx Coronary Artery Disease, Hx Heart Attack Pulmonary Medical History: Denies: Hx Asthma, Hx Bronchitis, Hx COPD, Hx Pneumonia Neurological Medical History: Denies: Hx Cerebrovascular Accident, Hx Seizures Endocrine Medical History: Reports: Hx Diabetes Mellitus Type 2 - prediabetic Renal/ Medical History: Denies: Hx Peritoneal Dialysis Malignancy Medical History: Reports: Hx Cervical Cancer GI Medical History: Denies: Hx Liver Failure Musculoskeltal Medical History: Denies Hx Arthritis Psychiatric Medical History: Reports: Hx Depression - current Past Surgical History: Reports: Hx Hysterectomy, Hx Orthopedic Surgery - right shoulder, Hx Tubal Ligation - Immunizations Immunizations up to date: Yes Hx Diphtheria, Pertussis, Tetanus Vaccination: No Review of Systems - Review of Systems Notes: REVIEW OF SYSTEMS: CONSTITUTIONAL : Denies fever, chills, or sweats. Denies recent illness. EENT: Denies eye, ear, throat, or mouth pain or symptoms. Denies nasal or sinus congestion or discharge. Denies throat, tongue, or mouth swelling or difficulty swallowing. CARDIOVASCULAR: Denies chest pain. Denies palpitations or racing or irregular heart beat. Denies ankle edema. RESPIRATORY: Denies cough, cold, or chest congestion. Denies shortness of breath, difficulty breathing, or wheezing. GASTROINTESTINAL: Admits to abdominal pain cramping diarrhea GENITOURINARY: Denies difficulty urinating, painful urination, burning, frequency, blood in urine, or discharge. FEMALE GENITOURINARY: Denies vaginal bleeding, heavy or abnormal periods, irregular periods. Denies vaginal discharge or odor. MUSCULOSKELETAL: Denies back or neck pain or stiffness. Denies joint pain or swelling. SKIN: Denies rash, lesions or sores. HEMATOLOGIC : Denies easy bruising or bleeding. LYMPHATIC: Denies swollen, enlarged glands. NEUROLOGICAL: Denies confusion or altered mental status. Denies passing out or loss of consciousness. Denies dizziness or lightheadedness. Denies headache. Denies weakness or paralysis or loss of use of either side. Denies problems with gait or speech. Denies sensory loss, numbness, or tingling. Denies seizures. PSYCHIATRIC: Denies anxiety or stress. Denies depression, suicidal ideation, or homicidal ideation. ALL OTHER SYSTEMS REVIEWED AND NEGATIVE. PHYSICAL EXAMINATION: GENERAL: Well-appearing, well-nourished and in no acute distress. HEAD: Atraumatic, normocephalic. EYES: Pupils equal round and reactive to light, extraocular movements intact, conjunctiva are normal. ENT: Nares patent, oropharynx clear without exudates. Moist mucous membranes. NECK: Normal range of motion, supple without lymphadenopathy LUNGS: Breath sounds clear to auscultation bilaterally and equal. No wheezes rales or rhonchi. HEART: Regular rate and rhythm without murmurs ABDOMEN: Soft, mildly distended abdomen. No guarding, no rebound. No masses appreciated. Female : deferred Musculoskeletal: Normal range of motion, no pitting or edema. No cyanosis. NEUROLOGICAL: Cranial nerves grossly intact. Normal speech, normal gait. Normal sensory, motor exams PSYCH: Normal mood, normal affect. SKIN: Warm, Dry, normal turgor, no rashes or lesions noted. Dictation was performed using [employer] voice recognition software Physical Exam - Vital signs Vitals: Temp Pulse Resp BP Pulse Ox 97.6 F 85 17 132/80 H 100 08/17/17 11:56 08/17/17 11:56 08/17/17 11:56 08/17/17 11:56 08/17/17 11:56 Course - Re-evaluation Re-evalutation: 08/17/17 13:32 Patient has probable constipation I have very low suspicion for an actual obstruction x-rays pending at this time 08/17/17 18:53 Patient's initial x-ray was concerning for an obstruction, therefore CT with oral and IV contrast was performed, and notes significant improvement of symptoms. Therefore given patient has not been vomiting does not appear to have an obstruction I believe she is stable for discharge. Patient will be sent home with mag citrate since this seems to improve her previous constipation issues After performing a Medical Screening Examination, I estimate there is LOW risk for ACUTE APPENDICITIS, BOWEL OBSTRUCTION, ACUTE CHOLECYSTITIS, PERFORATED DIVERTICULITIS, INCARCERATED HERNIA, PANCREATITIS, PELVIC INFLAMMATORY DISEASE, PERFORATED ULCER, ECTOPIC , or TUBO-OVARIAN ABSCESS, thus I consider the discharge disposition reasonable. Also, there is no evidence or peritonitis , sepsis, or toxicity. I have reevaluated this patient multiple times and no significant life threatening changes are noted. The patient and I have discussed the diagnosis and risks, and we agree with discharging home with close follow-up with the understanding that symptoms and presentations can change. We also discussed returning to the Emergency Department immediately if new or worsening symptoms occur. We have discussed the symptoms which are most concerning (e.g., bloody stool, fever, changing or worsening pain, vomiting) that necessitate immediate return. - Vital Signs Vital signs: Temp Pulse Resp BP Pulse Ox 97.8 F 80 17 130/75 H 100 08/17/17 15:52 08/17/17 15:52 08/17/17 15:52 08/17/17 15:52 08/17/17 15:52 - Laboratory Result Diagrams: 08/17/17 15:55 08/17/17 16:34 Laboratory results interpreted by me: 08/17/17 15:55 WBC 11.3 H Hgb 11.1 L Hct 33.3 L RDW 15.1 H - Diagnostic Test Radiology reviewed: Image reviewed, Reports reviewed Discharge - Discharge Clinical Impression: Constipation Qualifiers: Constipation type: unspecified constipation type Qualified Code(s): K59.00 - Constipation, unspecified Abdominal pain Qualifiers: Abdominal location: unspecified location Qualified Code(s): R10.9 - Unspecified abdominal pain Condition: Stable Disposition: HOME, SELF-CARE Instructions: Constipation ([facility]) Prescriptions: Magnesium Citrate 295 ml PO DAILY #2 solution Referrals: SHEA ALVARADO MD [Primary Care Provider] - Follow up tomorrow
--- NOTE | 2017-08-17 13:29 | RADIOLOGY REPORT (SQ) ---
EXAM DESCRIPTION: ACUTE ABDOMEN SERIES COMPLETED DATE/TIME: 08/17/2017 1:17 pm REASON FOR STUDY: constipation COMPARISON: CT abdomen pelvis 02/09/2010 Three-way abdomen series 04/29/2016 Two-view chest 02/08/2017 NUMBER OF VIEWS: Three views. TECHNIQUE: Frontal chest, supine abdomen and upright abdomen radiographic images acquired. LIMITATIONS: None. FINDINGS: CHEST: Lungs clear of infiltrates. No pleural effusion. No pneumothorax. Cardiac silhou ette size, fadi unremarkable. FREE AIR: None. No abnormal gas collections. BOWEL GAS PATTERN: Abnormal bowel gas pattern with air-fluid levels in mildly distended stomach small bowel and colon. Distal colon obstruction versus ileus. CALCIFICATIONS: Calcified pelvic phleboliths. HARDWARE: None in the abdomen. SOFT TISSUES: No gross mass or suggestion of organomegaly. BONES: No acute fracture. No worrisome bone lesions. OTHER: No other significant finding. IMPRESSION: Abnormal bowel gas pattern with air-fluid levels in nondistended stomach small bowel and colon. Distal colon not well seen. Question ileus versus descending colon stricture TECHNICAL DOCUMENTATION: JOB ID: [id number] [employer]- All Rights Reserved Reading location - IP/workstation name: [email or web address]
[2017-08-17 13:40] LABS: APPEARANCE,URINE SLIGHTLY-CLOUDY; BILIRUBIN,URINE NEGATIVE (NEGATIVE); COLOR,URINE YELLOW; GLUCOSE, URINE NEGATIVE (NEGATIVE); KETONES,URINE NEGATIVE (NEGATIVE); LEUKOCYTE ESTERASE,URINE NEGATIVE (NEGATIVE); NITRITE,URINE NEGATIVE (NEGATIVE); PROTEIN,URINE NEGATIVE (NEGATIVE); URINE SPECIFIC GRAVITY 1.011; UROBILINOGEN,URINE NEGATIVE mg/dL (<2.0)
[2017-08-17 16:02] VITALS: BP 130/75
[2017-08-17 16:09] LABS: ABSOLUTE BASOPHILS # (AUTO) 0.1 10^3/uL (0.0-0.2); ABSOLUTE EOSINOPHILS # (AUTO) 0.3 10^3/uL (0.0-0.6); ABSOLUTE LYMPHOCYTES (AUTO) 2.4 10^3/uL (0.5-4.7); ABSOLUTE MONOCYTES (AUTO) 0.4 10^3/uL (0.1-1.4); ABSOLUTE NEUT (AUTO) 8.1 10^3/uL (1.7-8.2); BASOPHILS % (AUTO) 1.1 % (0-2); EOSINOPHILS % (AUTO) 2.6 % (0-6); HEMATOCRIT 33.3 % (36.0-47.0); HEMOGLOBIN 11.1 g/dL (12.0-15.5); LYMPHOCYTES % (AUTO) 21.2 % (13-45); MEAN CORPUSCULAR HEMOGLOBIN 28.2 pg (27.0-33.4); MEAN CORPUSCULAR HGB CONC 33.3 g/dL (32.0-36.0); MEAN CORPUSCULAR VOLUME 85 fl (80-97); MONOCYTES % (AUTO) 3.7 % (3-13); PLATELET COUNT 374 10^3/uL (150-450); RED BLOOD COUNT 3.92 10^6/uL (3.72-5.28); RED CELL DISTRIBUTION WIDTH 15.1 % (11.5-14.0); SEGMENTED NEUTROPHILS % (AUTO) 71.4 % (42-78); TOTAL CELLS COUNTED % (AUTO) 100 %; WHITE BLOOD COUNT 11.3 10^3/uL (4.0-10.5)
[2017-08-17] MEDS ORDERED: ONDANSETRON HCL INJ/PF 4 MG/2 ML SDV IV ONE (16:54)
[2017-08-17 17:06] LABS: ALANINE AMINOTRANSFERASE 25 U/L (9-52); ALBUMIN 4.2 g/dL (3.5-5.0); ALKALINE PHOSPHATASE 91 U/L (38-126); ANION GAP 11 (5-19); ASPARTATE AMINO TRANSFERASE 14 U/L (14-36); BILIRUBIN,DIRECT 0.3 mg/dL (0.0-0.4); BILIRUBIN,TOTAL 0.3 mg/dL (0.2-1.3); BLOOD UREA NITROGEN 12 mg/dL (7-20); CALCIUM 8.8 mg/dL (8.4-10.2); CARBON DIOXIDE 23 mmol/L (22-30); CHLORIDE 106 mmol/L (98-107); GLUCOSE 107 mg/dL (75-110); SODIUM 139.8 mmol/L (137-145); TOTAL PROTEIN 7.6 g/dL (6.3-8.2)
[2017-08-17] MEDS ORDERED: FENTANYL CITRATE INJ/PF 100 MCG/2 ML AMPUL IV ONE (17:45)
--- NOTE | 2017-08-17 17:56 | RADIOLOGY REPORT (SQ) ---
EXAM DESCRIPTION: CT ABD/PELVIS WITH IV ORAL COMPLETED DATE/TIME: 08/17/2017 5:42 pm REASON FOR STUDY: abd pain COMPARISON: None. TECHNIQUE: CT scan of the abdomen and pelvis performed using helical scanning technique with dynamic intravenous contrast injection. No oral contrast. Images reviewed with lung, soft tissue, and bone windows. Reconstructed coronal and sagittal MPR images reviewed. Delayed images for evaluation of the urinary system also acquired. All images stored on PACS. All CT scanners at this facility use dose modulation, iterative reconstruction, and/or weight based d osing when appropriate to reduce radiation dose to as low as reasonably achievable (ALARA). [facility]: Dose Right [facility]: CareDose [facility]: Dose Right [facility]: Teradose 4D [facility]: SpectraRep CONTRAST TYPE AND DOSE: contrast/concentration: Isovue 370.00 mg/ml; Total Contrast Delivered: 76.0 ml; Total Saline Delivered: 57.0 ml 76 Isovue 370- low osmolar. RENAL FUNCTION: None required. The patient is less than 50 years old. RADIATION DOSE: CT Rad equipment meets quality standard of care and radiation dose reduction techniq ues were employed. CTDIvol: 11.3 - 15.5 mGy. DLP: 1376 mGy-cm.. LIMITATIONS: None. FINDINGS: LOWER CHEST: No significant findings. No nodules or infiltrates. LIVER: Normal size. No masses. No dilated ducts. SPLEEN: Normal size. No focal lesions. PANCREAS: No masses. No significant calcifications. No adjacent inflammation or peripancreatic fluid collections. Pancreatic duct not dilated. GALLBLADDER: No identified stones by CT criteria. No inflammatory changes to suggest cholecystitis. ADRENAL GLANDS: No significant masses or asymmetry. RIGHT KIDNEY AND URETER: No solid masses. No significant calcifications. No hydronephrosis or hyd roureter. LEFT KIDNEY AND URETER: No solid masses. No significant calcifications. No hydronephrosis or hydr oureter. AORTA AND VESSELS: No aneurysm. No dissection. Renal arteries, SMA, celiac without stenosis. RETROPERITONEUM: No retroperitoneal adenopathy, hemorrhage or masses. BOWEL AND PERITONEAL CAVITY: Minimal scattered large bowel gas. Essentially no small bowel gas. No air-fluid levels. No masses or inflammatory change. APPENDIX: Normal. PELVIS: No mass. No free fluid. Normal bladder. ABDOMINAL WALL: No masses. No hernias. BONES: No significant or acute findings. OTHER: No other significant finding. IMPRESSION: Significantly improved bowel gas pattern since the earlier 3 way of the abdomen. Curren tly no CT evidence of bowel obstruction and only scattered large bowel gas. No acute or significant findings throughout the abdomen and pelvis. TECHNICAL DOCUMENTATION: JOB ID: [id number] Quality ID # [id number]: Final reports with documentation of one or more dose reduction techniques (e.g., Au tomated exposure control, adjustment of the mA and/or kV according to patient size, use of iterative reconstruction technique) 2010 [employer]- All Rights Reserved Reading location - IP/workstation name: [email or web address]
== END 2017-08-17 18:10 | disposition home or self-care (01) ==
LOC: ER 11:51
DX: K59.00 Constipation, unspecified (principal); R10.9 Unspecified abdominal pain; R14.0 Abdominal distension (gaseous); R19.7 Diarrhea, unspecified
CPT/HCPCS: 99284; 96374; 96375; 36415; 85025; 80053; 81001; 74022; 74177; J3010; J2405

== ENCOUNTER 2017-10-12 16:42 | Emergency (ER) | payer BC ==
[2017-10-12] MEDS ORDERED: DEXAMETHASONE SOD PHOS INJ 10 MG/1 ML VIAL IM ONE (17:04)
[2017-10-12] MEDS ORDERED: LIDOCAINE 5% (700 MG) TRANSDERMAL ADH..PATCH TP ONE (17:04)
[2017-10-12] MEDS ORDERED: ACETAMINOPHEN 325 MG TABLET PO ONE (17:04)
[2017-10-12 17:08] VITALS: BP 127/88
--- NOTE | 2017-10-12 17:10 | RADIOLOGY REPORT (SQ) ---
EXAM DESCRIPTION: HIP RIGHT AP/LATERAL COMPLETED DATE/TIME: 10/12/2017 5:00 pm REASON FOR STUDY: pain s/p fall COMPARISON: None. NUMBER OF VIEWS: Two views. TECHNIQUE: AP pelvis and additional frog-leg view of the right hip. LIMITATIONS: None. FINDINGS: MINERALIZATION: Normal. RIGHT HIP: No fracture or dislocation. No worrisome bone lesions. LEFT HIP: No fracture or dislocation. No worrisome bone lesions. PUBIS AND ISCHIUM: No fracture. PELVIS: No fracture. SACRUM: No fracture or dislocation. No worrisome bone lesions. LOWER LUMBAR SPINE: No fracture or dislocation. No worrisome bone lesions. No significant disc disea se. SOFT TISSUES: No findings. OTHER: No other significant finding. IMPRESSION: NEGATIVE STUDY OF THE RIGHT HIP. NO RADIOGRAPHIC EVIDENCE OF ACUTE INJURY. TECHNICAL DOCUMENTATION: JOB ID: [id number] [employer]- All Rights Reserved Reading location - IP/workstation name: [email or web address]
--- NOTE | 2017-10-12 17:10 | ER Document Report ---
HPI - HPI Pain Level: 4 Notes: Patient is a 42-year-old female with a history of chronic shoulder and low back pain with a history of sciatica who presents to the ED complaining of right buttock pain that radiates down in her right lower extremity status post injury prior to arrival. Patient states that she is going on the stairs when she felt the pain and then landed on her buttocks. Patient states that since then her pain has been exacerbated. Patient has had pain in this area before with the same directional tracking. Patient states that twisting movements of the trunk increase her pain while certain unspecified positions can improve her pain. She denies any surgeries or injections to her lower back. She denies any smoking or IV drug use. She is eating and drinking without difficulties. She is urinating normally and having normal bowel movements. Patient states that she is able to ambulate, but does limp because of the pain. Denies any previous history of spinal abscess. Pt did try 200mg motrin with no relief. Patient states that her pain started after she landed on her buttocks. Denies any headache, fever, head injury, neck pain, URI, sore throat, chest pain, palpitations, syncope, cough, shortness of breath, wheeze, dyspnea, abdominal pain, nausea/vomiting/diarrhea, urinary retention, dysuria, hematuria, loss of control of bowel or bladder, numbness/tingling, saddle anesthesia, muscle paralysis/weakness, or rash. - ROS Systems Reviewed and Negative: Yes All other systems reviewed and negative - REPRODUCTIVE Reproductive: DENIES: : Past Medical History - Social History Smoking Status: Never Smoker Family History: CAD - Mother of [place] at 56 - Past Medical History Cardiac Medical History: Reports: Hx Hypertension - on meds Denies: Hx Coronary Artery Disease, Hx Heart Attack Pulmonary Medical History: Denies: Hx Asthma, Hx Bronchitis, Hx COPD, Hx Pneumonia Neurological Medical History: Denies: Hx Cerebrovascular Accident, Hx Seizures Endocrine Medical History: Reports: Hx Diabetes Mellitus Type 2 - prediabetic Renal/ Medical History: Denies: Hx Peritoneal Dialysis Malignancy Medical History: Reports: Hx Cervical Cancer GI Medical History: Denies: Hx Liver Failure Musculoskeltal Medical History: Denies Hx Arthritis Psychiatric Medical History: Reports: Hx Depression - current Past Surgical History: Reports: Hx Hysterectomy, Hx Orthopedic Surgery - right shoulder, Hx Tubal Ligation - Immunizations Immunizations up to date: Yes Hx Diphtheria, Pertussis, Tetanus Vaccination: No Vertical Provider Document - CONSTITUTIONAL Agree With Documented VS: Yes Notes: PHYSICAL EXAMINATION: GENERAL: Well-appearing, well-nourished and in no acute distress. LUNGS: Breath sounds clear to auscultation bilaterally and equal. No wheezes rales or rhonchi. HEART: Regular rate and rhythm without murmurs, rubs, gallops. ABDOMEN: Soft, nontender, nondistended abdomen. No guarding, no rebound. No masses appreciated. Normal bowel sounds present. No CVA tenderness bilaterally. No pulsatile mass Musculoskeletal: LE's b/l: FROM to passive/active. Strength 5+/5. No deficits noted. No bony tenderness of extremities. Back: FROM to passive/active. Strength 5+/5. No vertebral point tenderness, stepoffs, or deformities. No other bony tenderness, erythema, swelling, or ecchymosis. SLR negative b/l. + mild tenderness to the Rt L-paraspinal mm. Mild spasming. + rt SI jt tenderness, correlates with pain described. No foot drop Extremities: No cyanosis, clubbing, or edema b/l. Peripheral pulses 2+. Capillary refill less than 2 seconds. NEUROLOGICAL: Normal speech, limping gait. Normal sensory, motor exams. Reflexes 2+ b/l. PSYCH: Normal mood, normal affect. SKIN: Warm, Dry, normal turgor, no rashes or lesions noted. - INFECTION CONTROL TRAVEL OUTSIDE OF THE [place] IN LAST 30 DAYS: No Course - Re-evaluation Re-evalutation: 10/12/17 17:06 Patient is an afebrile, well-hydrated, 42-year-old female who presents to the ED with right sacroiliitis and muscle spasming with exacerbation of her sciatica. Vitals are acceptable. PE is otherwise unremarkable for any focal neurological deficits, neurovascular compromise, obvious tendon/ligament rupture , obvious fracture/dislocation. X-ray was unremarkable for any acute pathology. Patient is able to ambulate around the room even though she is limping. Patient was given Decadron and a Lidoderm patch today. I will send her home with a prescription for naproxen, Voltaren gel, as well as baclofen. No other labs or imaging warranted at this time based on H&P. Low suspicion for any meningitis, fracture, expanding/ruptured AAA, cauda equina syndrome, epidural mass lesion/abscess, herniated disc causing severe spinal stenosis, or other systemic infection at this time. Patient is aware that his condition can change from initial presentation and that she needs monitor symptoms closely for any acute changes. Advised recheck with PCM in 2-3 days. Consider consult orthopedic/physical therapy. Return to the ED with any worsening/concerning symptoms otherwise as reviewed discharge. Patient is in agreement. Discharge - Discharge Clinical Impression: Pain of right sacroiliac joint Sciatica Qualifiers: Laterality: right Qualified Code(s): M54.31 - Sciatica, right side Condition: Stable Disposition: HOME, SELF-CARE Instructions: Low Back Pain ([facility]), Sciatica ([facility]), Stretching Exercises for the Back ([facility]) Additional Instructions: Rest, Ice, Compression, Elevation Tylenol/ibuprofen as needed Light stretches daily Strength exercises as able Moist heat and massage may help F/u with your PCP in 3-5 days for a recheck Consider consult(s) with Orthopedics/physical therapy for ongoing/worsening symptoms Return to the ED with any worsening symptoms and/or development of fever, headache, chest pain, palpitations, syncope, shortness of breath, trouble breathing, abdominal pain, n/v/d, blood in stool/urine, loss of control of bowel /bladder, urinary retention, muscle weakness/paralysis, saddle anesthesia, numbness/tingling, or other worsening symptoms that are concerning to you. Prescriptions: Baclofen [Baclofen 10 mg Tablet] 5 - 10 mg PO BID PRN #10 tablet PRN Reason: Diclofenac Sodium [Voltaren] 4 gm TP QID PRN #100 gel..gm. PRN Reason: Naproxen 500 mg PO BID PRN #30 tablet PRN Reason: Forms: Elevated Blood Pressure Referrals: [facility] [Provider Group] - Follow up as needed
== END 2017-10-12 18:09 | disposition home or self-care (01) ==
LOC: ER 16:42
DX: M53.3 Sacrococcygeal disorders, not elsewhere classified (principal); M54.31 Sciatica, right side; M79.1 Myalgia; Z85.41 Personal history of malignant neoplasm of cervix uteri; Z90.710 Acquired absence of both cervix and uterus
CPT/HCPCS: 99283; 96372; 73502; J1100

== ENCOUNTER 2017-10-27 05:57 | Observation (INO) | payer BC ==
[2017-10-27] MEDS ORDERED: NORMAL SALINE 1000 ML 1,000 ML IV ONE ×2 (06:13→06:40)
[2017-10-27] MEDS ORDERED: ONDANSETRON HCL INJ/PF 4 MG/2 ML SDV IV ONE ×2 (06:13→09:17)
[2017-10-27 06:39] LABS: ABSOLUTE BASOPHILS # (AUTO) 0.1 10^3/uL (0.0-0.2); ABSOLUTE EOSINOPHILS # (AUTO) 0.2 10^3/uL (0.0-0.6); ABSOLUTE MONOCYTES (AUTO) 0.3 10^3/uL (0.1-1.4); ABSOLUTE NEUT (AUTO) 12.8 10^3/uL (1.7-8.2); BASOPHILS % (AUTO) 0.4 % (0-2); HEMATOCRIT 34.4 % (36.0-47.0); HEMOGLOBIN 11.2 g/dL (12.0-15.5); LYMPHOCYTES % (AUTO) 13.1 % (13-45); MEAN CORPUSCULAR HEMOGLOBIN 27.4 pg (27.0-33.4); MEAN CORPUSCULAR HGB CONC 32.6 g/dL (32.0-36.0); MEAN CORPUSCULAR VOLUME 84 fl (80-97); MONOCYTES % (AUTO) 2.2 % (3-13); PLATELET COUNT 338 10^3/uL (150-450); RED BLOOD COUNT 4.09 10^6/uL (3.72-5.28); SEGMENTED NEUTROPHILS % (AUTO) 83.3 % (42-78); TOTAL CELLS COUNTED % (AUTO) 100 %; WHITE BLOOD COUNT 15.4 10^3/uL (4.0-10.5)
--- NOTE | 2017-10-27 06:50 | RADIOLOGY REPORT (SQ) ---
EXAM DESCRIPTION: Chest one view CLINICAL HISTORY: 42 years Female, Hypotension COMPARISON: 8.21.17 NUMBER OF VIEWS/TECHNIQUE: 1/AP FINDINGS: Adequate lung volume, clear parenchyma, normal cardiac silhouette, and intact bony thorax. IMPRESSION: No acute cardiopulmonary findings.
[2017-10-27 06:51] LABS: ALANINE AMINOTRANSFERASE 29 U/L (9-52); ALBUMIN 4.1 g/dL (3.5-5.0); ALKALINE PHOSPHATASE 97 U/L (38-126); ANION GAP 16 (5-19); APPEARANCE,URINE CLEAR; ASPARTATE AMINO TRANSFERASE 18 U/L (14-36); BILIRUBIN,DIRECT 0.2 mg/dL (0.0-0.4); BILIRUBIN,TOTAL 0.2 mg/dL (0.2-1.3); BILIRUBIN,URINE NEGATIVE (NEGATIVE); BLOOD UREA NITROGEN 15 mg/dL (7-20); CALCIUM 9.8 mg/dL (8.4-10.2); CARBON DIOXIDE 26 mmol/L (22-30); CHLORIDE 99 mmol/L (98-107); COLOR,URINE YELLOW; GLUCOSE 176 mg/dL (75-110); GLUCOSE, URINE NEGATIVE (NEGATIVE); KETONES,URINE NEGATIVE (NEGATIVE); LEUKOCYTE ESTERASE,URINE NEGATIVE (NEGATIVE); NITRITE,URINE NEGATIVE (NEGATIVE); POTASSIUM 3.9 mmol/L (3.6-5.0); PROTEIN,URINE NEGATIVE (NEGATIVE); SODIUM 141.4 mmol/L (137-145); TOTAL PROTEIN 7.5 g/dL (6.3-8.2); UROBILINOGEN,URINE NEGATIVE mg/dL (<2.0)
[2017-10-27 07:09] LABS: URINE AMPHETAMINES SCREEN NEGATIVE; URINE BARBITURATES SCREEN NEGATIVE; URINE BENZODIAZEPINES SCREEN NEGATIVE; URINE COCAINE SCREEN NEGATIVE; URINE MARIJUANA (THC) SCREEN NEGATIVE; URINE METHADONE SCREEN NEGATIVE; URINE PHENCYCLIDINE SCREEN NEGATIVE
--- NOTE | 2017-10-27 07:12 | ER Document Report ---
ED General - General Chief Complaint: Nausea/Vomiting/Diarrhea Stated Complaint: DIZZINESS Time Seen by Provider: 10/27/17 06:10 TRAVEL OUTSIDE OF THE [place] IN LAST 30 DAYS: No - HPI Notes: 42-year-old female presents via EMS with hypotension and altered mental status. History is somewhat difficult to obtain initially secondary to clinical condition. Patient allegedly began vomiting and having possibly 1 or 2 episodes of loose stools. On EMS arrival, she was hypotensive with a blood pressure in the 70s systolic. She responded to a 400 cc isotonic crystalloid bolus. She apparently was "in and out of consciousness", and by description was just less responsive. There is no seizure activity. On my initial evaluation patient is sleepy but states she takes Seroquel amitriptyline and other medications at night to sleep. Initially denied abdominal pain but later admitted to having some lower suprapubic pain. No frequency, urgency or dysuria. She has had no cough, no fever. She denies any new medications. No back pain. No other modifying factors, no other associated symptoms, no other provocative or palliative factors. - Related Data Allergies/Adverse Reactions: atropine Allergy (Severe, Verified 08/17/17 11:51) violent ketorolac [From Toradol] Allergy (Severe, Verified 08/17/17 11:51) tremors midazolam [From Versed] Allergy (Severe, Verified 08/17/17 11:51) violent nalbuphine [From Nubain] Allergy (Severe, Verified 08/17/17 11:51) violent Past Medical History - General Information source: Patient - Social History Smoking Status: Unknown if Ever Smoked Drug Abuse: None Family History: CAD - Mother of [place] at 56 Patient has suicidal ideation: No Patient has homicidal ideation: No - Past Medical History Cardiac Medical History: Reports: Hx Hypertension - on meds Denies: Hx Coronary Artery Disease, Hx Heart Attack Pulmonary Medical History: Denies: Hx Asthma, Hx Bronchitis, Hx COPD, Hx Pneumonia Neurological Medical History: Denies: Hx Cerebrovascular Accident, Hx Seizures Endocrine Medical History: Reports: Hx Diabetes Mellitus Type 2 - prediabetic Renal/ Medical History: Denies: Hx Peritoneal Dialysis Malignancy Medical History: Reports: Hx Cervical Cancer GI Medical History: Denies: Hx Liver Failure Musculoskeltal Medical History: Denies Hx Arthritis Psychiatric Medical History: Reports: Hx Depression - current Past Surgical History: Reports: Hx Hysterectomy, Hx Orthopedic Surgery - right shoulder, Hx Tubal Ligation - Immunizations Immunizations up to date: Yes Hx Diphtheria, Pertussis, Tetanus Vaccination: No Review of Systems - Review of Systems Notes: Review of systems as in history of present illness otherwise limited by clinical condition Physical Exam - Vital signs Vitals: Resp BP Pulse Ox 18 106/68 100 10/27/17 06:00 10/27/17 06:00 10/27/17 06:00 - Notes Notes: General: Well developed . HEENT: Normocephalic, atraumatic. Pupils equal round reactive to light. No JVD. Dry mucous is noted. Chest: No trauma. Respiratory: Good air exchange, normal excursion. Cardiac: Regular rhythm. No murmurs or gallops. Abdomen: Soft, benign. Nondistended. Moderate suprapubic tenderness noted.. Back: No asymmetry or gross abnormality. Motor: Grossly normal power and tone. Neurologic: Alert, nonfocal. Cranial nerves II-12 are intact. Sensation intact. Vascular: Well perfused. Normal peripheral pulses. Skin: No petechiae or purpura. Course - Re-evaluation Re-evalutation: 10/27/17 07:13 42-year-old female who presents with transient hypotension and altered mentation. May be multifactorial. Clearly would consider underlying sepsis syndrome, dehydration, less likely be vascular catastrophe. She has a relatively benign examination I think abdominal vascular emergency is unlikely. Will consider an atypical diverticulitis. Plan to proceed with volume resuscitation, labs, IV axis EKG, reassess - Vital Signs Vital signs: Temp Pulse Resp BP Pulse Ox 98.2 F 112 H 18 119/74 100 10/27/17 06:11 10/27/17 06:11 10/27/17 08:01 10/27/17 08:00 10/27/17 08:01 - Laboratory Result Diagrams: 10/27/17 06:30 10/27/17 06:30 Laboratory results interpreted by me: 10/27/17 10/27/17 10/27/17 06:30 06:30 06:30 WBC 15.4 H Hgb 11.2 L Hct 34.4 L RDW 15.0 H Seg Neutrophils % 83.3 H Monocytes % 2.2 L Absolute Neutrophils 12.8 H Creatinine 1.36 H Est GFR ( Amer) 52 L Est GFR (Non-Af Amer) 43 L Glucose 176 H Lactic Acid 3.0 H Discharge - Discharge Clinical Impression: Syncope Qualifiers: Syncope type: unspecified Qualified Code(s): R55 - Syncope and collapse Condition: Serious Disposition: ADMITTED OBSERVATION Admitting Provider: Dionte Unit Admitted: Telemetry Referrals: SHEA ALVARADO MD [Primary Care Provider] - Follow up as needed
--- NOTE | 2017-10-27 07:50 | EKG REPORT ---
SEVERITY:- ABNORMAL ECG - SINUS TACHYCARDIA RIGHT AXIS DEVIATION = LPFB = NEW COMPARED TO 06/01/17 EKG BORDERLINE T WAVE ABNORMALITIES : Confirmed by: Shay Amaya MD 27-Oct-2017 07:50:13
[2017-10-27] MEDS ORDERED: RINGERS SOLUTION,LACTATED 1,000 ML IV PRN (07:59)
[2017-10-27] MEDS ORDERED: ACETAMINOPHEN 325 MG TABLET PO ONE (08:48)
--- NOTE | 2017-10-27 09:00 | RADIOLOGY REPORT (SQ) ---
EXAM DESCRIPTION: CT ABD/PELVIS WITH IV ONLY COMPLETED DATE/TIME: 10/27/2017 8:35 am REASON FOR STUDY: Lower abdominal pain, hypotension, leukocytosis COMPARISON: None. TECHNIQUE: CT scan of the abdomen and pelvis performed using helical scanning technique with dynamic intravenous contrast injection. No oral contrast. Images reviewed with lung, soft tissue, and bone windows. Reconstructed coronal and sagittal MPR images reviewed. Delayed images for evaluation of the urinary system also acquired. All images stored on PACS. All CT scanners at this facility use dose modulation, iterative reconstruction, and/or weight based d osing when appropriate to reduce radiation dose to as low as reasonably achievable (ALARA). [facility]: Dose Right [facility]: CareDose [facility]: Dose Right [facility]: Teradose 4D [facility]: VeryLastRoom CONTRAST TYPE AND DOSE: contrast/concentration: Isovue 370.00 mg/ml; Total Contrast Delivered: 79.0 ml; Total Saline Delivered: 65.0 ml RENAL FUNCTION: BUN 15 creatinine 1.4 RADIATION DOSE: CT Rad equipment meets quality standard of care and radiation dose reduction techniq ues were employed. CTDIvol: 17.8 - 20.0 mGy. DLP: 1956 mGy-cm.. LIMITATIONS: None. FINDINGS: LOWER CHEST: No significant findings. No nodules or infiltrates. LIVER: Normal size. No masses. No dilated ducts. SPLEEN: Normal size. No focal lesions. PANCREAS: No masses. No significant calcifications. No adjacent inflammation or peripancreatic fluid collections. Pancreatic duct not dilated. GALLBLADDER: No identified stones by CT criteria. No inflammatory changes to suggest cholecystitis. ADRENAL GLANDS: No significant masses or asymmetry. RIGHT KIDNEY AND URETER: No solid masses. No significant calcifications. No hydronephrosis or hyd roureter. LEFT KIDNEY AND URETER: No solid masses. No significant calcifications. No hydronephrosis or hydr oureter. AORTA AND VESSELS: No aneurysm. No dissection. Renal arteries, SMA, celiac without stenosis. RETROPERITONEUM: No retroperitoneal adenopathy, hemorrhage or masses. BOWEL AND PERITONEAL CAVITY: No masses or inflammatory changes. No free fluid or peritoneal masses. APPENDIX: Normal. PELVIS: Cardoso catheter in urinary bladder. Nondependent gas. ABDOMINAL WALL: No masses. No hernias. BONES: No significant or acute findings. OTHER: No other significant finding. IMPRESSION: No acute findings in the abdomen or pelvis. TECHNICAL DOCUMENTATION: JOB ID: [id number] Quality ID # [id number]: Final reports with documentation of one or more dose reduction techniques (e.g., Au tomated exposure control, adjustment of the mA and/or kV according to patient size, use of iterative reconstruction technique) 2010 [employer]- All Rights Reserved Reading location - IP/workstation name: [email or web address]-[email or web address]
[2017-10-27] MEDS ORDERED: HYDROMORPHONE HCL INJ/PF 2 MG/ML AMPULE IV ONE (12:00)
--- NOTE | 2017-10-27 12:57 | RADIOLOGY REPORT (SQ) ---
EXAM DESCRIPTION: CTA CHEST COMPLETED DATE/TIME: 10/27/2017 12:03 pm REASON FOR STUDY: Tachycardia, markedly elevated D-Dimer COMPARISON: Chest x-ray dated 10/27/2017 TECHNIQUE: CT scan of the chest performed using helical scanning technique with dynamic intravenous contrast injection. Images reviewed with lung, soft tissue and bone windows. Reconstructed coronal and sagittal MPR images reviewed. Additional 3 dimensional post-processing performed to develop Maximal Intensity Projection images (PR P). All images stored on PACS. All CT scanners at this facility use dose modulation, iterative reconstruction, and/or weight based d osing when appropriate to reduce radiation dose to as low as reasonably achievable (ALARA). [facility]: Dose Right [facility]: CareDose [facility]: Dose Right [facility]: Teradose 4D [facility]: BranchOut CONTRAST TYPE AND DOSE: contrast/concentration: Isovue 370.00 mg/ml; Total Contrast Delivered: 68.0 ml; Total Saline Delivered: 90.1 ml Contrast bolus optimized for the pulmonary arteries. Not diagnostic for the aorta. RENAL FUNCTION: None required. The patient is less than 50 years old. RADIATION DOSE: CT Rad equipment meets quality standard of care and radiation dose reduction techniq ues were employed. CTDIvol: 29.8 - 33.1 mGy. DLP: 974 mGy-cm. . LIMITATIONS: None. FINDINGS: LUNGS AND PLEURA: No acute consolidations or pleural effusions are identified. There are some minimal linear densities in the left lung base most consistent with subsegmental atelectasis. N o pneumothorax is seen. AORTA AND GREAT VESSELS: No aneurysm. Contrast bolus not optimized for the aorta. HEART: No pericardial effusion. No significant coronary artery calcifications. PULMONARY ARTERIES: No emboli visualized in the main pulmonary arteries or the segmental branches. HILAR AND MEDIASTINAL STRUCTURES: No identified masses or abnormal nodes. HARDWARE: None in the chest. UPPER ABDOMEN: No significant findings. Limited exam. THYROID AND OTHER SOFT TISSUES: No masses. No adenopathy. BONES: No acute or significant finding. 3D MIPS: Confirm above findings. OTHER: No other significant finding. IMPRESSION: No evidence for pulmonary embolic disease. There are some minimal linear densities in t he left lung base most consistent with subsegmental atelectasis. No airspace consolidations or pleur al effusions are identified. No pneumothorax is seen. Other findings as noted above COMMENT: Quality ID # [id number]: Final reports with documentation of one or more dose reduction techniques (e.g., Automated exposure control, adjustment of the mA and/or kV according to patient size, use of iterative reconstruction technique) TECHNICAL DOCUMENTATION: JOB ID: [id number] [employer]- All Rights Reserved Reading location - IP/workstation name: [email or web address]
[2017-10-27 16:29] LABS: HEMATOCRIT 31.8 % (36.0-47.0); HEMOGLOBIN 10.4 g/dL (12.0-15.5); MEAN CORPUSCULAR HEMOGLOBIN 27.4 pg (27.0-33.4); MEAN CORPUSCULAR HGB CONC 32.7 g/dL (32.0-36.0); MEAN CORPUSCULAR VOLUME 84 fl (80-97); PLATELET COUNT 290 10^3/uL (150-450); RED BLOOD COUNT 3.81 10^6/uL (3.72-5.28); RED CELL DISTRIBUTION WIDTH 15.1 % (11.5-14.0); WHITE BLOOD COUNT 13.5 10^3/uL (4.0-10.5)
[2017-10-27 16:36] LABS: INTERNATIONAL RATION (INR) 1.03
[2017-10-27 16:37] LABS: PARTIAL THROMBOPLASTIN TIME 31.3 SEC (23.5-35.8)
--- NOTE | 2017-10-27 16:46 | PDOC H&P ---
History of Present Illness Admission Date/PCP: 10/27/17 10:24 SHEA ALVARADO MD History of Present Illness: CHRIST HONEYCUTT is a 42 year old female, she came to the emergency room this morning for evaluation of loss of consciousness associated with low blood pressure. She stated that earlier this morning about 3:00 AM she felt warm sensation on the head and face area then she lost consciousness, there was also antecedent palpitation she said this episode occurred twice then living-in boyfriend called the rescue squad and she was transferred to the emergency room for evaluation. She stated that she has had this episode before usually she can predict when she will lose consciousness because it is usually preceded by palpitation and warm sensation of the head and neck area. She also stated that when this incident occurred earlier this morning she had episode of loose stool. She has no history of seizure when EMS arrived she was found to be hypotensive with a systolic blood pressure of 70 she was administered normal saline and blood pressure responded to the normal saline in the emergency room she was found to have leukocytosis and tachycardia this was unexplained, also found was elevated d-dimer because of the elevated d-dimer CTA chest was done, there was no pulmonary embolic disease found on the CTA there was no pneumonia or airspace consolidations. Past Medical History Cardiac Medical History: Reports: Hypertension - on meds Malignancy Medical History: Reports: Cervical Cancer Psychiatric Medical History: Reports: Depression Hematology: Reports: Anemia Past Surgical History Past Surgical History: Reports: Hysterectomy, Orthopedic Surgery - right shoulder, Tubal Ligation Social History Smoking Status: Never Smoker Frequency of Alcohol Use: None Hx Recreational Drug Use: No Hx Prescription Drug Abuse: No - Advance Directive Resuscitation Status: Full Code Family History Family History: CAD - Mother of [place] at 56 Parental Family History Reviewed: Yes Children Family History Reviewed: Yes Sibling(s) Family History Reviewed.: Yes Medication/Allergy Allergies/Adverse Reactions: atropine Allergy (Severe, Verified 08/17/17 11:51) violent ketorolac [From Toradol] Allergy (Severe, Verified 08/17/17 11:51) tremors midazolam [From Versed] Allergy (Severe, Verified 08/17/17 11:51) violent nalbuphine [From Nubain] Allergy (Severe, Verified 08/17/17 11:51) violent Review of Systems Constitutional: ABSENT: chills, fever(s), headache(s), weight gain, weight loss Eyes: ABSENT: visual disturbances Ears: ABSENT: hearing changes Cardiovascular: PRESENT: palpitations. ABSENT: chest pain, dyspnea on exertion , edema, orthropnea Respiratory: ABSENT: cough, hemoptysis Gastrointestinal: ABSENT: abdominal pain, constipation, diarrhea, hematemesis, hematochezia, nausea, vomiting Genitourinary: ABSENT: dysuria, hematuria Musculoskeletal: ABSENT: joint swelling Integumentary: ABSENT: rash, wounds Neurological: PRESENT: syncope. ABSENT: abnormal gait, abnormal speech, confusion, dizziness, focal weakness Psychiatric: ABSENT: anxiety, depression, homidical ideation, suicidal ideation Endocrine: ABSENT: cold intolerance, heat intolerance, menstrual abnormalities, polydipsia, polyuria Hematologic/Lymphatic: ABSENT: easy bleeding, easy bruising, lymphadenopathy Physical Exam Vital Signs: Temp Pulse Resp BP Pulse Ox 99.1 F 113 H 18 111/65 100 10/27/17 13:46 10/27/17 13:46 10/27/17 13:46 10/27/17 13:46 10/27/17 13:46 Intake & Output 10/26/17 10/27/17 10/28/17 06:59 06:59 06:59 Weight 71.8 kg General appearance: PRESENT: no acute distress, well-developed, well-nourished Head exam: PRESENT: atraumatic, normocephalic Eye exam: PRESENT: conjunctiva pink, EOMI, PERRLA Ear exam: PRESENT: normal external ear exam Mouth exam: PRESENT: moist, tongue midline Neck exam: PRESENT: full ROM Respiratory exam: PRESENT: clear to auscultation priscilla Cardiovascular exam: PRESENT: RRR, +S1, +S2 Pulses: PRESENT: normal dorsalis pedis pul, +2 pedal pulses bilateral Vascular exam: PRESENT: normal capillary refill GI/Abdominal exam: PRESENT: normal bowel sounds, soft Rectal exam: PRESENT: deferred Neurological exam: PRESENT: alert, awake, oriented to person, oriented to place , oriented to time, oriented to situation, CN II-XII grossly intact Psychiatric exam: PRESENT: appropriate affect, normal mood Skin exam: PRESENT: dry, intact, warm Results Laboratory Results: 10/27/17 16:15 10/27/17 10/27/17 10/27/17 10:47 15:07 16:15 WBC 13.5 H RBC 3.81 Hgb 10.4 L Hct 31.8 L MCV 84 MCH 27.4 MCHC 32.7 RDW 15.1 H Plt Count 290 Lactic Acid Cancelled 2.0 Impressions: Chest X-Ray 10/27/17 06:13 IMPRESSION: No acute cardiopulmonary findings. Abdomen/Pelvis CT 10/27/17 07:04 IMPRESSION: No acute findings in the abdomen or pelvis. Chest/Abdomen CTA 10/27/17 11:04 IMPRESSION: No evidence for pulmonary embolic disease. There are some minimal linear densities in the left lung base most consistent with subsegmental atelectasis. No airspace consolidations or pleural effusions are identified. No pneumothorax is seen. Other findings as noted above Assessment & Plan - Diagnosis (1) Syncope Qualifiers: Syncope type: unspecified Qualified Code(s): R55 - Syncope and collapse Is this a current diagnosis for this admission?: Yes Plan: The symptoms suggest a syncope, there was antecedent palpitation associated with loss of consciousness, this is a recurrent episode, she will need a 30 day event monitor, this is outpatient procedure, she will be observed for 24 hours in the hospital and discharged home. I believe the diarrhea is coincident it is not related to the syncope episode that she has experienced, the syncope episode is recurrent problem she also stated that usually she can predict when she lose consciousness whenever she has a sensation of warmth in the head and neck area she will pass out. I have no explanation for leukocytosis,it could be related to the diarrhea
[2017-10-27] MEDS ORDERED: (PENDING PHARMACY ID) (Oxycodone Hcl/Acetaminophen [Endocet 10-325 Mg Tablet] 1 TAB) PO PRN (16:53)
[2017-10-27] MEDS ORDERED: CYCLOBENZAPRINE HCL 10 MG TABLET PO PRN (16:53)
[2017-10-27] MEDS ORDERED: OXYCODONE HCL IR 5 MG TABLET PO PRN (16:59)
[2017-10-27 17:01] LABS: ANION GAP 13 (5-19); BLOOD UREA NITROGEN 10 mg/dL (7-20); CALCIUM 8.6 mg/dL (8.4-10.2); CARBON DIOXIDE 26 mmol/L (22-30); CHLORIDE 102 mmol/L (98-107); GLUCOSE 102 mg/dL (75-110); PHOSPHORUS 3.7 mg/dL (2.5-4.5); POTASSIUM 4.1 mmol/L (3.6-5.0); SODIUM 141.2 mmol/L (137-145)
[2017-10-27 17:20] LABS: CREATINE KINASE MB < 0.22 ng/mL (<4.55); TROPONIN I < 0.012 ng/mL
[2017-10-27 17:50] LABS: ARTERIAL BLOOD BASE EXCESS 0.9 mmol/L; ARTERIAL BLOOD H2CO3 1.16 mmol/L (1.05-1.35); ARTERIAL BLOOD HCO3 25.1 mmol/L (20-26); ARTERIAL BLOOD O2 SATURATION 97.2 % (94-98); ARTERIAL BLOOD PCO2 38.5 mmHg (35-45); ARTERIAL BLOOD PH 7.43 (7.35-7.45); ARTERIAL BLOOD PO2 91.1 mmHg (80-100); ARTERIAL BLOOD TOTAL CO2 26.3 mmol/L (21-25)
[2017-10-27 17:52] LABS: ARTERIAL BLOOD FIO2 21%
[2017-10-27] MEDS: OXYCODONE-ACETAMINOPHEN 5-325 MG TABLET PO PRN (18:21)
--- NOTE | 2017-10-27 18:22 | EKG REPORT ---
SEVERITY:- OTHERWISE NORMAL ECG - SINUS TACHYCARDIA LOW VOLTAGE IN FRONTAL LEADS : Confirmed by: Shay Amaya MD 27-Oct-2017 18:21:41
[2017-10-27] MEDS: NORMAL SALINE 1000 ML 1,000 ML IV PRN (18:24)
[2017-10-27] MEDS ORDERED: DEXTROSE 50%-WATER SYRINGE 12.5 GM/25 ML DOSE IV PRN (18:53)
[2017-10-27] MEDS ORDERED: INSULIN LISPRO 100 UNIT/ML 3 ML VIAL SUBCUT PRN (18:53)
[2017-10-27] MEDS ORDERED: DEXTROSE 40% GEL 15 GM TUBE PO PRN (18:53)
[2017-10-27] MEDS ORDERED: DEXTROSE 50%-WATER SYRINGE 25 GM/50 ML DOSE IV PRN (18:53)
[2017-10-27] MEDS ORDERED: GLUCAGON,HUMAN RECOMB 1 MG INJ IM PRN (18:53)
[2017-10-27] MEDS ORDERED: DEXTROSE 40% GEL 15 GM TUBE X 2 PO PRN (18:53)
[2017-10-27] MEDS ORDERED: AMITRIPTYLINE HCL 25 MG TABLET PO SCH (22:00)
[2017-10-27] MEDS ORDERED: QUETIAPINE FUMARATE 100 MG TABLET PO SCH (22:00)
[2017-10-27 22:55] LABS: CREATINE KINASE MB < 0.22 ng/mL (<4.55); TROPONIN I < 0.012 ng/mL
[2017-10-28] MEDS: NORMAL SALINE 1000 ML 1,000 ML IV PRN ×2 (02:56→13:22)
[2017-10-28] MEDS: OXYCODONE-ACETAMINOPHEN 5-325 MG TABLET PO PRN ×3 (02:58→18:05)
[2017-10-28] MEDS ORDERED: LANSOPRAZOLE 30 MG TAB.RAP.DR PO SCH (06:00)
[2017-10-28 06:19] LABS: THYROID STIMULATING HORMONE 0.35 uIU/mL (0.47-4.68)
[2017-10-28 06:22] LABS: FREE T4 (FREE THYROXINE) 1.25 ng/dL (0.78-2.19)
[2017-10-28 06:34] LABS: CREATINE KINASE MB < 0.22 ng/mL (<4.55); TROPONIN I < 0.012 ng/mL
[2017-10-28 07:26] LABS: HEMOGLOBIN 10.5 g/dL (12.0-15.5); MEAN CORPUSCULAR HGB CONC 33.8 g/dL (32.0-36.0); MEAN CORPUSCULAR VOLUME 83 fl (80-97); PLATELET COUNT 235 10^3/uL (150-450); RED BLOOD COUNT 3.73 10^6/uL (3.72-5.28); RED CELL DISTRIBUTION WIDTH 15.1 % (11.5-14.0); WHITE BLOOD COUNT 10.8 10^3/uL (4.0-10.5)
--- NOTE | 2017-10-28 07:32 | EKG REPORT ---
SEVERITY:- BORDERLINE ECG - SINUS TACHYCARDIA BORDERLINE T ABNORMALITIES, ANTERIOR LEADS : Confirmed by: Shay Amaya MD 28-Oct-2017 07:32:18
[2017-10-28] MEDS ORDERED: METFORMIN HCL 500 MG TABLET PO SCH (08:00)
[2017-10-28] MEDS ORDERED: HYDROCHLOROTHIAZIDE 12.5 MG CAPSULE PO SCH (10:00)
[2017-10-28] MEDS ORDERED: (PENDING PHARMACY ID) (Lisinopril/Hydrochlorothiazide [Lisinopril-Hctz 20-12.5 Mg Tab] 1 T PO SCH (10:00)
[2017-10-28] MEDS ORDERED: LISINOPRIL 10 MG TABLET PO SCH (10:00)
[2017-10-28] MEDS ORDERED: ENOXAPARIN SODIUM INJ 40 MG/0.4 ML DISP.SYRIN SUBCUT SCH (10:00)
--- NOTE | 2017-10-28 13:32 | EKG REPORT ---
SEVERITY:- ABNORMAL ECG - SINUS TACHYCARDIA VENTRICULAR PREMATURE COMPLEX CONSIDER ANTERIOR INFARCT BORDERLINE T WAVE ABNORMALITIES : Confirmed by: Shay Amaya MD 28-Oct-2017 13:32:21
[2017-10-28 18:13] VITALS: BP 111/65
--- NOTE | 2017-10-28 20:11 | PDOC DISCHARGE SUMMARY ---
General - Admit/Disc Date/PCP Admission Date/Primary Care Provider: 10/27/17 10:24 SHEA ALVARADO MD Discharge Date: 10/28/17 - Discharge Diagnosis (1) Syncope Is this a current diagnosis for this admission?: Yes - Additional Information Resuscitation Status: Full Code Discharge Diet: As Tolerated Discharge Activity: Activity As Tolerated Home Medications: Amitriptyline HCl [Elavil 25 mg Tablet] 25 mg PO QHS 10/27/17 Cyclobenzaprine HCl [Flexeril 5 mg Tablet] 5 mg PO Q8HP PRN 10/27/17 Lisinopril/Hydrochlorothiazide [Lisinopril-Hctz 20-12.5 mg Tab] 1 tab PO DAILY 10/27/17 Metformin HCl [Glucophage 500 mg Tablet] 500 mg PO [id number] 10/27/17 Oxycodone HCl/Acetaminophen [Endocet 10-325 mg Tablet] 1 tab PO Q6HP PRN Pantoprazole Sodium [Protonix] 40 mg PO DAILY 10/27/17 Quetiapine Fumarate [Seroquel] 200 mg PO QHS 10/27/17 History of Present Illness History of Present Illness: CHRIST HONEYCUTT is a 42 year old female, she came to the emergency room this morning for evaluation of loss of consciousness associated with low blood pressure. She stated that earlier this morning about 3:00 AM she felt warm sensation on the head and face area then she lost consciousness, there was also antecedent palpitation she said this episode occurred twice then living-in boyfriend called the rescue squad and she was transferred to the emergency room for evaluation. She stated that she has had this episode before usually she can predict when she will lose consciousness because it is usually preceded by palpitation and warm sensation of the head and neck area. She also stated that when this incident occurred earlier this morning she had episode of loose stool. She has no history of seizure when EMS arrived she was found to be hypotensive with a systolic blood pressure of 70 she was administered normal saline and blood pressure responded to the normal saline in the emergency room she was found to have leukocytosis and tachycardia this was unexplained, also found was elevated d-dimer because of the elevated d-dimer CTA chest was done, there was no pulmonary embolic disease found on the CTA there was no pneumonia or airspace consolidations. Hospital Course Hospital Course: Patient was admitted for observation and management of syncope, she would need 30 day event monitor to be done outpatient Physical Exam Vital Signs: Temp Pulse Resp BP Pulse Ox 98.5 F 100 16 111/65 100 10/28/17 18:12 10/28/17 18:12 10/28/17 18:12 10/28/17 18:12 10/28/17 18:12 Intake & Output 10/27/17 10/28/17 10/29/17 06:59 06:59 06:59 Intake Total 3000 2325 Balance 3000 2325 Weight 71.3 kg General appearance: PRESENT: no acute distress, well-developed, well-nourished Head exam: PRESENT: atraumatic, normocephalic Eye exam: PRESENT: conjunctiva pink, EOMI, PERRLA Ear exam: PRESENT: normal external ear exam Mouth exam: PRESENT: moist, tongue midline Neck exam: PRESENT: full ROM Respiratory exam: PRESENT: clear to auscultation priscilla Cardiovascular exam: PRESENT: RRR, +S1, +S2 Pulses: PRESENT: normal dorsalis pedis pul, +2 pedal pulses bilateral Vascular exam: PRESENT: normal capillary refill GI/Abdominal exam: PRESENT: normal bowel sounds, soft Rectal exam: PRESENT: deferred Neurological exam: PRESENT: alert, awake, oriented to person, oriented to place , oriented to time, oriented to situation, CN II-XII grossly intact Psychiatric exam: PRESENT: appropriate affect, normal mood Skin exam: PRESENT: dry, intact, warm Results Laboratory Results: 10/28/17 04:23 10/27/17 16:15 10/28/17 10/28/17 04:23 04:23 WBC 10.8 H RBC 3.73 Hgb 10.5 L Hct 31.0 L MCV 83 MCH 28.0 MCHC 33.8 RDW 15.1 H Plt Count 235 TSH 0.35 L Free T4 1.25 10/27/17 10/27/17 10/27/17 16:15 16:15 22:00 Creatine Kinase 55 53 CK-MB (CK-2) < 0.22 Troponin I < 0.012 10/27/17 10/28/17 10/28/17 22:00 04:23 04:23 Creatine Kinase 50 CK-MB (CK-2) < 0.22 < 0.22 Troponin I < 0.012 < 0.012 Impressions: Chest X-Ray 10/27/17 06:13 IMPRESSION: No acute cardiopulmonary findings. Abdomen/Pelvis CT 10/27/17 07:04 IMPRESSION: No acute findings in the abdomen or pelvis. Chest/Abdomen CTA 10/27/17 11:04 IMPRESSION: No evidence for pulmonary embolic disease. There are some minimal linear densities in the left lung base most consistent with subsegmental atelectasis. No airspace consolidations or pleural effusions are identified. No pneumothorax is seen. Other findings as noted above Qualifiers - * PATIENT BEING DISCHARGED WITH ANY OF THE FOLLOWING DIAGNOSIS: No
== END 2017-10-28 18:49 | disposition home or self-care (01) ==
LOC: ER 05:57 → EH 10:24 → 3N 13:56
PROVIDERS: ADMIT Internal Medicine; ATTEND Internal Medicine
DX: R55 Syncope and collapse (principal); R00.2 Palpitations; I95.89 Other hypotension; D72.829 Elevated white blood cell count, unspecified; R00.0 Tachycardia, unspecified; R79.89 Other specified abnormal findings of blood chemistry; I10 Essential (primary) hypertension; R19.7 Diarrhea, unspecified; Z79.899 Other long term (current) drug therapy; Z79.84 Long term (current) use of oral hypoglycemic drugs; Z85.41 Personal history of malignant neoplasm of cervix uteri; Z82.49 Family history of ischemic heart disease and other diseases of the circulatory system; Z98.51 Tubal ligation status
CPT/HCPCS: 93005 ×3; 99285; 96361; 96374; 86900; 86901; 36415 ×2; 87040; 84439; 82553 ×2; 86850; 82962 ×2; 82803; 82550 ×2; 83605 ×2; 83735; 84100; 84443; 85025; 85027 ×2; 85610; 85730; 80048; 80053; 81001; 84484 ×2; 80307; 83036; 85379; 71045; 71275; 74177; 93010 ×2; J3490; J1650; J1170; J2405; J7030 ×2; J7120

== ENCOUNTER 2017-12-11 15:04 | Emergency (ER) | payer BC ==
[2017-12-11] MEDS ORDERED: NORMAL SALINE 1000 ML 1,000 ML IV ONE ×2 (15:45→17:41)
[2017-12-11] MEDS ORDERED: ASPIRIN 81 MG TABLET, CHEWABLE PO ONE (15:45)
--- NOTE | 2017-12-11 15:54 | ER Document Report ---
ED General - General Chief Complaint: Palpitations Stated Complaint: CHEST PAIN/ BLOOD IN STOOL Time Seen by Provider: 12/11/17 15:29 Mode of Arrival: Ambulatory Information source: Patient Notes: 42-year-old female presents emergency department with multiple complaints. Patient states for the last couple of months she has had intermittent episodes of tachycardia. Patient has followed up with her primary care physician and has been referred to Dr. Suresh. Patient states that she has worn a Holter monitor for the last month. She states that she just returned that 4 days ago. She has not followed up with her primary care physician or geodetic advisor to discuss the findings. Patient states that she began having tachycardia along with some lightheadedness earlier today. It has been constant. Patient denies a syncopal episode. She denies any chest pain or shortness of breath. Patient states that she is having some intermittent epigastric and suprapubic abdominal pain. She notes that she had bright red blood in her stool earlier today. This prompted her to come to the emergency department for an evaluation. Patient denies any surgeries on her abdomen. She denies a history of GI bleed in the past. Patient denies any nausea, vomiting, diarrhea, constipation. TRAVEL OUTSIDE OF THE [place] IN LAST 30 DAYS: No - HPI Patient complains to provider of: Tachycardia Onset: Just prior to arrival Onset/Duration: Sudden Quality of pain: Dull Severity: Mild Associated symptoms: None Exacerbated by: Denies Relieved by: Denies Similar symptoms previously: Yes Recently seen / treated by doctor: No - Related Data Allergies/Adverse Reactions: atropine Allergy (Severe, Verified 12/11/17 15:05) violent ketorolac [From Toradol] Allergy (Severe, Verified 12/11/17 15:05) tremors midazolam [From Versed] Allergy (Severe, Verified 12/11/17 15:05) violent nalbuphine [From Nubain] Allergy (Severe, Verified 12/11/17 15:05) violent Past Medical History - Social History Smoking Status: Never Smoker Family History: CAD - Mother of [place] at 56 - Past Medical History Cardiac Medical History: Reports: Hx Hypertension - on meds Denies: Hx Coronary Artery Disease, Hx Heart Attack Pulmonary Medical History: Denies: Hx Asthma, Hx Bronchitis, Hx COPD, Hx Pneumonia Neurological Medical History: Denies: Hx Cerebrovascular Accident, Hx Seizures Endocrine Medical History: Reports: Hx Diabetes Mellitus Type 2 - prediabetic Renal/ Medical History: Denies: Hx Peritoneal Dialysis Malignancy Medical History: Reports: Hx Cervical Cancer GI Medical History: Denies: Hx Liver Failure Musculoskeltal Medical History: Denies Hx Arthritis Psychiatric Medical History: Reports: Hx Depression Past Surgical History: Reports: Hx Hysterectomy, Hx Orthopedic Surgery - right shoulder, Hx Tubal Ligation - Immunizations Immunizations up to date: Yes Hx Diphtheria, Pertussis, Tetanus Vaccination: No Review of Systems - Review of Systems Constitutional: No symptoms reported EENT: No symptoms reported Cardiovascular: Palpitations, Heart racing, Lightheaded Respiratory: No symptoms reported Gastrointestinal: Abdominal pain, Rectal bleeding Genitourinary: No symptoms reported Female Genitourinary: No symptoms reported Musculoskeletal: No symptoms reported Skin: No symptoms reported Neurological/Psychological: No symptoms reported -: Yes All other systems reviewed and negative Physical Exam - Vital signs Vitals: Pulse Ox 97 12/11/17 16:35 Interpretation: Tachycardic - Notes Notes: PHYSICAL EXAMINATION: GENERAL: Well-appearing, well-nourished and in no acute distress. HEAD: Atraumatic, normocephalic. EYES: Pupils equal round and reactive to light, extraocular movements intact, conjunctiva are normal. ENT: Nares patent, oropharynx clear without exudates. Moist mucous membranes. NECK: Normal range of motion, supple without lymphadenopathy LUNGS: Breath sounds clear to auscultation bilaterally and equal. No wheezes rales or rhonchi. HEART: Tachycardia. S1S2. ABDOMEN: Soft, nontender, nondistended abdomen. No guarding, no rebound. No masses appreciated. Female : deferred Musculoskeletal: Normal range of motion, no pitting or edema. No cyanosis. NEUROLOGICAL: Cranial nerves grossly intact. Normal speech, normal gait. Normal sensory, motor exams PSYCH: Normal mood, normal affect. SKIN: Warm, Dry, normal turgor, no rashes or lesions noted. Course - Re-evaluation Re-evalutation: 12/11/17 18:22 Patient feeling better on re-evaluation. Labs and imaging obtained. Hemoglobin is stable. Heme occult positive stool. No gross blood seen on exam. Tachycardia resolving after 1 liter of fluids. Patient declines CTA chest. Says that she had one done a month ago. Does not exposure to additional radiation. I discussed the patient with Dr. Marie, who is supervisor erection shop for Dr. Alvarado. He recommends an additional Liter of fluids and having the patient follow up in the office Wednesday. I discussed the plan of care with the patient. She feels comfortable with discharge home. Says the fluids have helped significantly. Patient told to take medication prescribed as directed, to follow up with her PCP on Wednesday as discussed, and to return for worsening symptoms. - Vital Signs Vital signs: Temp Pulse Resp BP Pulse Ox 108 H 112/71 97 12/11/17 16:50 12/11/17 16:50 12/11/17 16:35 - Laboratory Result Diagrams: 12/11/17 15:30 12/11/17 15:30 Laboratory results interpreted by me: 12/11/17 12/11/17 12/11/17 15:30 15:30 15:30 WBC 11.7 H Hgb 11.9 L Hct 35.0 L RDW 15.6 H Seg Neutrophils % 81.8 H Monocytes % 2.6 L Absolute Neutrophils 9.6 H Glucose 159 H Total Protein 8.5 H TSH 0.44 L Discharge - Discharge Clinical Impression: Lightheaded, Palpitation GI bleed Qualifiers: GI bleed type/associated pathology: unspecified gastrointestinal hemorrhage type Qualified Code(s): K92.2 - Gastrointestinal hemorrhage, unspecified Condition: Good Disposition: HOME, SELF-CARE Instructions: Palpitations (Irregular or Rapid Heartrate) ([facility]) Referrals: SHEA ALVARADO MD [Primary Care Provider] - Follow up as needed
[2017-12-11 15:58] LABS: ABSOLUTE EOSINOPHILS # (AUTO) 0.1 10^3/uL (0.0-0.6); ABSOLUTE LYMPHOCYTES (AUTO) 1.7 10^3/uL (0.5-4.7); ABSOLUTE MONOCYTES (AUTO) 0.3 10^3/uL (0.1-1.4); ABSOLUTE NEUT (AUTO) 9.6 10^3/uL (1.7-8.2); BASOPHILS % (AUTO) 0.4 % (0-2); EOSINOPHILS % (AUTO) 0.8 % (0-6); HEMOGLOBIN 11.9 g/dL (12.0-15.5); LYMPHOCYTES % (AUTO) 14.4 % (13-45); MEAN CORPUSCULAR HEMOGLOBIN 28.2 pg (27.0-33.4); MEAN CORPUSCULAR VOLUME 83 fl (80-97); MONOCYTES % (AUTO) 2.6 % (3-13); PLATELET COUNT 412 10^3/uL (150-450); RED BLOOD COUNT 4.23 10^6/uL (3.72-5.28); RED CELL DISTRIBUTION WIDTH 15.6 % (11.5-14.0); SEGMENTED NEUTROPHILS % (AUTO) 81.8 % (42-78); TOTAL CELLS COUNTED % (AUTO) 100 %; WHITE BLOOD COUNT 11.7 10^3/uL (4.0-10.5)
[2017-12-11 16:26] LABS: ALANINE AMINOTRANSFERASE 18 U/L (9-52); ALBUMIN 4.6 g/dL (3.5-5.0); ALKALINE PHOSPHATASE 109 U/L (38-126); ANION GAP 17 (5-19); ASPARTATE AMINO TRANSFERASE 17 U/L (14-36); BILIRUBIN,DIRECT 0.4 mg/dL (0.0-0.4); BILIRUBIN,TOTAL 0.5 mg/dL (0.2-1.3); BLOOD UREA NITROGEN 19 mg/dL (7-20); CALCIUM 9.6 mg/dL (8.4-10.2); CARBON DIOXIDE 23 mmol/L (22-30); CHLORIDE 101 mmol/L (98-107); GLUCOSE 159 mg/dL (75-110); LIPASE 127.9 U/L (23-300); SODIUM 140.8 mmol/L (137-145); TOTAL PROTEIN 8.5 g/dL (6.3-8.2)
[2017-12-11 16:41] LABS: FREE T4 (FREE THYROXINE) 0.96 ng/dL (0.78-2.19)
--- NOTE | 2017-12-11 16:43 | RADIOLOGY REPORT (SQ) ---
EXAM DESCRIPTION: CHEST SINGLE VIEW COMPLETED DATE/TIME: 12/11/2017 3:57 pm REASON FOR STUDY: chest pain COMPARISON: 10/27/2017. EXAM PARAMETERS: NUMBER OF VIEWS: One view. TECHNIQUE: Single frontal radiographic view of the chest acquired. RADIATION DOSE: NA LIMITATIONS: None. FINDINGS: LUNGS AND PLEURA: No opacities, masses or pneumothorax. No pleural effusion. MEDIASTINUM AND HILAR STRUCTURES: No masses. Contour normal. HEART AND VASCULAR STRUCTURES: Heart normal in size. Normal vasculature. BONES: No acute findings. HARDWARE: None in the chest. OTHER: No other significant finding. IMPRESSION: NO ACUTE RADIOGRAPHIC FINDING IN THE CHEST. TECHNICAL DOCUMENTATION: JOB ID: [id number] [employer]- All Rights Reserved Reading location - IP/workstation name: [email or web address]
[2017-12-11 16:46] LABS: APPEARANCE,URINE CLEAR; BILIRUBIN,URINE NEGATIVE (NEGATIVE); COLOR,URINE YELLOW; GLUCOSE, URINE NEGATIVE (NEGATIVE); KETONES,URINE NEGATIVE (NEGATIVE); LEUKOCYTE ESTERASE,URINE NEGATIVE (NEGATIVE); NITRITE,URINE NEGATIVE (NEGATIVE); PROTEIN,URINE NEGATIVE (NEGATIVE); URINE SPECIFIC GRAVITY 1.004; UROBILINOGEN,URINE NEGATIVE mg/dL (<2.0)
[2017-12-11 16:54] LABS: THYROID STIMULATING HORMONE 0.44 uIU/mL (0.47-4.68)
[2017-12-11 17:01] LABS: URINE AMPHETAMINES SCREEN NEGATIVE; URINE BARBITURATES SCREEN NEGATIVE; URINE BENZODIAZEPINES SCREEN NEGATIVE; URINE COCAINE SCREEN NEGATIVE; URINE MARIJUANA (THC) SCREEN NEGATIVE; URINE METHADONE SCREEN NEGATIVE; URINE PHENCYCLIDINE SCREEN NEGATIVE
[2017-12-11 19:27] VITALS: BP 108/74
--- NOTE | 2017-12-12 10:05 | EKG REPORT ---
SEVERITY:- ABNORMAL ECG - SINUS TACHYCARDIA LEFT POSTERIOR FASCICULAR BLOCK : Confirmed by: Kiran Suresh 12-Dec-2017 10:05:00
== END 2017-12-11 19:15 | disposition home or self-care (01) ==
LOC: ER 15:04
DX: R42 Dizziness and giddiness (principal); R00.2 Palpitations; K92.2 Gastrointestinal hemorrhage, unspecified; R07.9 Chest pain, unspecified; K92.1 Melena; R00.0 Tachycardia, unspecified; I10 Essential (primary) hypertension; Z90.710 Acquired absence of both cervix and uterus
CPT/HCPCS: 93005; 99285; 96360; 96361; 36415; 84439; 83690; 84443; 85025; 82272; 81025; 80053; 81001; 84484; 80307; 71045; 93010; J7030

== ENCOUNTER 2018-04-06 15:32 | Observation (INO) | payer BC ==
--- NOTE | 2018-04-06 16:42 | ER Document Report ---
ED Syncope and Near Syncope - General Chief Complaint: Syncope Stated Complaint: SYNCOPE Time Seen by Provider: 04/06/18 16:35 Notes: History of Present Illness Chief Complaint: [syncope] [ ] History obtained from [patient] 43 years old female presents today with 2 episode of syncopal events. She has a history of previous multiple syncope due to rapid heartbeat, she was treated with metoprolol, yesterday that was discontinued to have a stress test tomorrow. And since then had 2 episodes of syncope with a heart rate of 160. Currently feeling comfortable no chest pain or shortness of breath. Denies any constitutional symptoms Symptoms began:[ today] Onset: [abrupt] Timing: [lasted seconds, now recovered] Context: [ As above] Preceding symptoms: [none] Aggravating factors: [none] Relieving factors: [none] Denies injury/trauma Denies witness seizure activity, incontinence, or significant postictal period Denies serious bleeding Denies calf or leg swelling or pain Review of systems: All other systems negative as reviewed. CONSTITUTIONAL No fever. EYES No eye pain. ENT No URI symptoms, No sore throat, No ear pain. CARDIOVASCULAR No chest pain, No palpitations, No edema. RESPIRATORY No Cough, No SOB, No wheezing. GASTROINTESTINAL No abdominal pain, No vomiting, No diarrhea, No melena, No rectal bleeding. GENITOURINARY No UTI symptoms. MUSCULOSKELETAL No back pain. SKIN No Rash. NEUROLOGIC No Headache, No paralysis, No parathesias. Physical Exam CONSTITUTIONAL Vital signs reviewed, Comfortable, Alert and oriented X 3. HEAD Atraumatic, Normal cephalic. EYES No discharge from eye, Sclera are not injected, Extraocular muscles intact, Conjunctiva are normal.perrl,2mm, no photophobia, no nystagmus, fundi wnl. ENT Ears normal to inspection, Nose examination normal, Oropharynx normal, Mucous membranes pink, moist, normal in color. NECK Normal inspection, supple, No focal bony tenderness, Normal ROM, No jugular venous distention, No meningeal signs, no carotid bruit or tenderness. RESPIRATORY/CHEST Chest is non-tender, Breath sounds normal, No respiratory distress. CARDIOVASCULAR RRR, Heart sounds normal. ABDOMEN Abdomen is non-tender, No masses, Bowel sounds normal, No distension, No peritoneal signs. BACK Normal inspection. UPPER EXTREMITY Inspection normal, Non tender, No cyanosis/clubbing/edema. LOWER EXTREMITY Inspection normal, Non tender, No cyanosis/clubbing/edema, No calf tenderness. NEURO cn intact, no astreixis, no pronator drift, finger to nose testing coordinated bilaterally, 1+ deep tendon reflexes x 4 ext, down going babinski bilaterally , normal speech, Motor exam normal, Sensory exam normal. SKIN Skin is warm and dry, No rash. LYMPHATIC No adenopathy in neck. PSYCHIATRIC Normal affect. TRAVEL OUTSIDE OF THE [place] IN LAST 30 DAYS: No - HPI Notes: Dictated - Related Data Allergies/Adverse Reactions: atropine Allergy (Severe, Verified 04/06/18 15:35) violent ketorolac [From Toradol] Allergy (Severe, Verified 04/06/18 15:35) tremors midazolam [From Versed] Allergy (Severe, Verified 04/06/18 15:35) violent nalbuphine [From Nubain] Allergy (Severe, Verified 04/06/18 15:35) violent Past Medical History - Social History Smoking Status: Never Smoker Frequency of alcohol use: Occasional Drug Abuse: None Lives with: Family Family History: Reviewed & Not Pertinent, CAD - Mother of [place] at 56 Patient has suicidal ideation: No Patient has homicidal ideation: No - Past Medical History Cardiac Medical History: Reports: Hx Hypertension - on meds Denies: Hx Coronary Artery Disease, Hx Heart Attack Pulmonary Medical History: Denies: Hx Asthma, Hx Bronchitis, Hx COPD, Hx Pneumonia Neurological Medical History: Denies: Hx Cerebrovascular Accident, Hx Seizures Endocrine Medical History: Reports: Hx Diabetes Mellitus Type 2 - prediabetic Renal/ Medical History: Denies: Hx Peritoneal Dialysis Malignancy Medical History: Reports: Hx Cervical Cancer GI Medical History: Denies: Hx Liver Failure Musculoskeletal Medical History: Denies Hx Arthritis Psychiatric Medical History: Reports: Hx Depression Past Surgical History: Reports: Hx Hysterectomy, Hx Oral Surgery - wisdom teeth , Hx Orthopedic Surgery - right shoulder, Hx Tubal Ligation - Immunizations Immunizations up to date: Yes Hx Diphtheria, Pertussis, Tetanus Vaccination: No Review of Systems - Review of Systems Notes: Dictated Physical Exam - Vital signs Vitals: Temp Pulse Resp BP Pulse Ox 98.1 F 120 H 20 117/72 100 04/06/18 15:51 04/06/18 15:51 04/06/18 15:51 04/06/18 15:51 04/06/18 15:51 - Notes Notes: Dictated Course - Re-evaluation Re-evalutation: 04/06/18 16:42 Case was discussed with Dr. Alvarado as well as Dr. Suresh and currently being admitted. - Vital Signs Vital signs: Temp Pulse Resp BP Pulse Ox 98.1 F 120 H 20 117/72 100 04/06/18 15:51 04/06/18 15:51 04/06/18 15:51 04/06/18 15:51 04/06/18 15:51 - EKG Interpretation by Mo EKG shows normal: Sinus rhythm - Sinus rhythm at 126 bpm normal axis no acute ST elevation ST depression T wave inversion noted. Discharge - Discharge Clinical Impression: Sinus tachycardia Syncope Qualifiers: Syncope type: unspecified Qualified Code(s): R55 - Syncope and collapse Condition: Fair Disposition: ADMITTED INPATIENT Admitting Provider: Dionte Unit Admitted: IMCU Referrals: SHEA ALVARADO MD [Primary Care Provider] - Follow up as needed
[2018-04-06] MEDS ORDERED: METOPROLOL SUCCINATE 25 MG TAB.SR.24H PO ONE (16:44)
[2018-04-06 17:19] LABS: ABSOLUTE BASOPHILS # (AUTO) 0.2 10^3/uL (0.0-0.2); ABSOLUTE EOSINOPHILS # (AUTO) 0.2 10^3/uL (0.0-0.6); ABSOLUTE LYMPHOCYTES (AUTO) 2.7 10^3/uL (0.5-4.7); ABSOLUTE MONOCYTES (AUTO) 0.7 10^3/uL (0.1-1.4); ABSOLUTE NEUT (AUTO) 9.8 10^3/uL (1.7-8.2); BASOPHILS % (AUTO) 1.2 % (0-2); EOSINOPHILS % (AUTO) 1.2 % (0-6); HEMATOCRIT 37.1 % (36.0-47.0); HEMOGLOBIN 12.5 g/dL (12.0-15.5); LYMPHOCYTES % (AUTO) 19.7 % (13-45); MEAN CORPUSCULAR HEMOGLOBIN 28.5 pg (27.0-33.4); MEAN CORPUSCULAR HGB CONC 33.6 g/dL (32.0-36.0); MEAN CORPUSCULAR VOLUME 85 fl (80-97); MONOCYTES % (AUTO) 4.9 % (3-13); PLATELET COUNT 485 10^3/uL (150-450); RED BLOOD COUNT 4.37 10^6/uL (3.72-5.28); RED CELL DISTRIBUTION WIDTH 15.1 % (11.5-14.0); TOTAL CELLS COUNTED % (AUTO) 100 %; WHITE BLOOD COUNT 13.5 10^3/uL (4.0-10.5)
--- NOTE | 2018-04-06 17:25 | RADIOLOGY REPORT (SQ) ---
EXAM DESCRIPTION: CHEST SINGLE VIEW COMPLETED DATE/TIME: 04/06/2018 5:13 pm REASON FOR STUDY: syncopy COMPARISON: 02/07/2015 EXAM PARAMETERS: NUMBER OF VIEWS: One view. TECHNIQUE: Single frontal radiographic view of the chest acquired. RADIATION DOSE: NA LIMITATIONS: None. FINDINGS: LUNGS AND PLEURA: No opacities, masses or pneumothorax. No pleural effusion. MEDIASTINUM AND HILAR STRUCTURES: No masses. Contour normal. HEART AND VASCULAR STRUCTURES: Heart normal in size. Normal vasculature. BONES: No acute findings. HARDWARE: None in the chest. OTHER: No other significant finding. IMPRESSION: NO ACUTE RADIOGRAPHIC FINDING IN THE CHEST. TECHNICAL DOCUMENTATION: JOB ID: [id number] [employer]- All Rights Reserved Reading location - IP/workstation name: [email or web address]
[2018-04-06 17:26] LABS: INTERNATIONAL RATION (INR) 0.94; PROTHROMBIN TIME 13.1 SEC (11.4-15.4)
[2018-04-06 17:42] LABS: ALANINE AMINOTRANSFERASE 11 U/L (9-52); ALBUMIN 4.3 g/dL (3.5-5.0); ALKALINE PHOSPHATASE 113 U/L (38-126); ANION GAP 13 (5-19); ASPARTATE AMINO TRANSFERASE 28 U/L (14-36); BILIRUBIN,DIRECT 0.3 mg/dL (0.0-0.4); BILIRUBIN,TOTAL 0.6 mg/dL (0.2-1.3); BLOOD UREA NITROGEN 14 mg/dL (7-20); CALCIUM 8.9 mg/dL (8.4-10.2); CARBON DIOXIDE 29 mmol/L (22-30); CHLORIDE 98 mmol/L (98-107); CREATINE KINASE 28 U/L (30-135); GLUCOSE 133 mg/dL (75-110); POTASSIUM 3.8 mmol/L (3.6-5.0); SODIUM 140.2 mmol/L (137-145); TOTAL PROTEIN 8.5 g/dL (6.3-8.2)
[2018-04-06 17:54] LABS: CREATINE KINASE MB 0.84 ng/mL (<4.55)
[2018-04-06 17:58] LABS: TROPONIN I < 0.012 ng/mL
--- NOTE | 2018-04-06 18:11 | EKG REPORT ---
SEVERITY:- ABNORMAL ECG - SINUS TACHYCARDIA LEFT POSTERIOR FASCICULAR BLOCK BORDERLINE T ABNORMALITIES, ANT-LAT LEADS : Confirmed by: Shay Amaya MD 06-Apr-2018 18:11:09
--- NOTE | 2018-04-06 21:56 | PDOC CONSULTATION ---
Consultation Consult Date: 04/06/18 Attending physician:: SHEA ALVARADO Consult reason:: Syncope History of Present Illness Admission Date/PCP: 04/06/18 17:56 SHEA ALVARADO MD Patient complains of: Syncope and palpitations History of Present Illness: CHRIST HONEYCUTT is a 43 year old female presents today with 2 episode of syncopal events 1st one on wednesday and 2nd one on wednesday. She has a history of previous multiple syncope due to rapid heartbeat, she was treated with metoprolol, yesterday that was discontinued to have a stress test tomorrow. Patient was actually ran out of metoprolol on wednesday. Previous evaluation had shown inappropriate sinus tachycardia. Today in ER noted with a heart rate of 160. Received metoprolol in ER Currently feeling comfortable no chest pain or shortness of breath. Denies any constitutional symptoms. Patient describes significant sleep related issues which includes history of snoring, difficulty falling asleep and staying asleep. Patient also claims to be very fatigued and sleepy during the day. Past Medical History Cardiac Medical History: Reports: Hypertension - on meds Denies: Coronary Artery Disease, Myocardial Infarction Pulmonary Medical History: Denies: Asthma, Bronchitis, Chronic Obstructive Pulmonary Disease (COPD), Pneumonia Neurological Medical History: Denies: Seizures Endocrine Medical History: Reports: Diabetes Mellitus Type 2 - prediabetic Malignancy Medical History: Reports: Cervical Cancer Musculoskeltal Medical History: Denies: Arthritis Psychiatric Medical History: Reports: Depression Hematology: Reports: Anemia Past Surgical History Past Surgical History: Reports: Hysterectomy, Orthopedic Surgery - right shoulder, Tubal Ligation Social History Information Source: Patient Lives with: Family Smoking Status: Never Smoker Frequency of Alcohol Use: None Hx Recreational Drug Use: No Hx Prescription Drug Abuse: No Family History Family History: Reviewed & Not Pertinent, CAD - Mother of [place] at 56 Parental Family History Reviewed: Yes Children Family History Reviewed: Yes Sibling(s) Family History Reviewed.: Yes Medication/Allergy Home Medications: Amitriptyline HCl [Elavil 25 mg Tablet] 25 mg PO QHS 04/06/18 Cyclobenzaprine HCl [Flexeril 5 mg Tablet] 5 mg PO Q8HP PRN 04/06/18 Linaclotide [Linzess 145 Mcg Capsule] 145 mcg PO DAILY 10/17/18 Oxycodone HCl/Acetaminophen [Percocet 10-325 mg Tablet] 1 tab PO Q6HP PRN Pantoprazole Sodium [Protonix] 40 mg PO DAILY 04/06/18 Quetiapine Fumarate [Seroquel] 200 mg PO QHS 04/06/18 Metoprolol Succinate [Toprol Xl 25 mg Tab.sr] 25 mg PO BID #0 04/07/18 Allergies/Adverse Reactions: atropine Allergy (Severe, Verified 04/06/18 15:35) violent ketorolac [From Toradol] Allergy (Severe, Verified 04/06/18 15:35) tremors midazolam [From Versed] Allergy (Severe, Verified 04/06/18 15:35) violent nalbuphine [From Nubain] Allergy (Severe, Verified 04/06/18 15:35) violent Review of Systems Constitutional: ABSENT: chills, fever(s), headache(s), weight gain, weight loss Eyes: ABSENT: visual disturbances Ears: ABSENT: hearing changes Nose, Mouth, and Throat: PRESENT: vertigo. ABSENT: as per HPI, headache(s), mouth pain, sore throat, other Cardiovascular: PRESENT: chest pain, dyspnea on exertion, palpitations. ABSENT : edema, orthropnea Gastrointestinal: PRESENT: nausea. ABSENT: abdominal pain, constipation, diarrhea, hematemesis, hematochezia, vomiting Genitourinary: ABSENT: dysuria, hematuria Musculoskeletal: ABSENT: joint swelling Integumentary: ABSENT: rash, wounds Neurological: PRESENT: syncope. ABSENT: abnormal gait, abnormal speech, confusion, dizziness, focal weakness Psychiatric: PRESENT: anxiety Endocrine: ABSENT: cold intolerance, heat intolerance, polydipsia, polyuria Hematologic/Lymphatic: ABSENT: easy bleeding, easy bruising Allergic/Immunologic: PRESENT: other Physical Exam Vital Signs: Temp Pulse Resp BP Pulse Ox 98.1 F 120 H 21 H 108/79 100 04/06/18 15:51 04/06/18 15:51 04/06/18 20:01 04/06/18 20:00 04/06/18 20:01 General appearance: PRESENT: no acute distress, well-developed, well-nourished Head exam: PRESENT: atraumatic, normocephalic Eye exam: PRESENT: conjunctiva pink, EOMI, PERRLA. ABSENT: scleral icterus Ear exam: PRESENT: normal external ear exam Mouth exam: PRESENT: moist, tongue midline Neck exam: ABSENT: carotid bruit, JVD, lymphadenopathy, thyromegaly Respiratory exam: PRESENT: clear to auscultation priscilla. ABSENT: rales, rhonchi, wheezes Cardiovascular exam: PRESENT: RRR. ABSENT: diastolic murmur, rubs, systolic murmur Pulses: PRESENT: normal dorsalis pedis pul Vascular exam: PRESENT: normal capillary refill GI/Abdominal exam: PRESENT: normal bowel sounds, soft. ABSENT: distended, guarding, mass, organolmegaly, rebound, tenderness Rectal exam: PRESENT: deferred Extremities exam: PRESENT: full ROM. ABSENT: calf tenderness, clubbing, pedal edema Neurological exam: PRESENT: alert, awake, oriented to person, oriented to place , oriented to time, oriented to situation, CN II-XII grossly intact. ABSENT: motor sensory deficit Psychiatric exam: PRESENT: appropriate affect, normal mood. ABSENT: homicidal ideation, suicidal ideation Skin exam: PRESENT: dry, intact, warm. ABSENT: cyanosis, rash Results Laboratory Results: 04/06/18 20:20 Troponin I < 0.012 EKG Comments: Sinus tachycardia Impressions: Chest X-Ray 04/06/18 16:36 IMPRESSION: NO ACUTE RADIOGRAPHIC FINDING IN THE CHEST. Assessment & Plan - Diagnosis (1) Syncope Qualifiers: Syncope type: unspecified Qualified Code(s): R55 - Syncope and collapse Is this a current diagnosis for this admission?: Yes Plan: Most likely vasovagal/neurocardiogenic syncope and presyncope. Other differential diagnosis includes includes cardiac arrhythmia in this patient's age group, hypotension secondary to orthostasis, seizure disorder, hypoglycemia et cetera. Both jagdeep and tachyarrhythmias are possible. Patient will benefit from cardiac monitoring during this admission. May need to consider outpatient cardiac monitoring using mobile cardiac blanker press operator if clinically indicated. Patient will also benefit from tilt table testing. This can be provided through my office. (2) Sinus tachycardia Is this a current diagnosis for this admission?: Yes Plan: Patient gives history of inappropriate sinus tachycardia. Recommend beta jorge therapy. Patient symptoms were reasonably well controlled on beta- blockers in the past. (3) Epigastric abdominal pain Is this a current diagnosis for this admission?: Yes Plan: Possibly related to distal esophagitis but could be part and parcel of vasovagal symptom. Patient already is scheduled for a stress test which she was scheduled as an outpatient. We will therefore do the stress test tomorrow as previously scheduled. (4) Sleep disorder Is this a current diagnosis for this admission?: Yes Plan: Patient describes significant sleep related symptoms. Discussed possible evaluation with a PSG. - Notes Notes: 2 D Echo NST Restart Betablocker EVM as OP - Time Time Spent: 30 to 50 Minutes - CODE STATUS was discussed, patient remains full code. Surrogate decision-maker unchanged. Multiple medical problems were addressed. More than 50% of the time spent coordinating care, discussing management plans with involved caregivers. Management plans discussed with involved personnels. Medical decision making was of moderate to high complexity , patient's has multiple comorbidities. Medications reviewed and adjusted accordingly: Yes
[2018-04-06] MEDS ORDERED: METOPROLOL SUCCINATE 25 MG TAB.SR.24H PO SCH (22:00)
[2018-04-07 02:43] LABS: ABSOLUTE BASOPHILS # (AUTO) 0.1 10^3/uL (0.0-0.2); ABSOLUTE EOSINOPHILS # (AUTO) 0.2 10^3/uL (0.0-0.6); ABSOLUTE LYMPHOCYTES (AUTO) 2.6 10^3/uL (0.5-4.7); ABSOLUTE MONOCYTES (AUTO) 0.6 10^3/uL (0.1-1.4); ABSOLUTE NEUT (AUTO) 6.5 10^3/uL (1.7-8.2); BASOPHILS % (AUTO) 0.7 % (0-2); EOSINOPHILS % (AUTO) 1.6 % (0-6); HEMATOCRIT 32.6 % (36.0-47.0); LYMPHOCYTES % (AUTO) 26.7 % (13-45); MEAN CORPUSCULAR HEMOGLOBIN 28.7 pg (27.0-33.4); MEAN CORPUSCULAR HGB CONC 33.7 g/dL (32.0-36.0); MEAN CORPUSCULAR VOLUME 85 fl (80-97); PLATELET COUNT 368 10^3/uL (150-450); RED BLOOD COUNT 3.82 10^6/uL (3.72-5.28); TOTAL CELLS COUNTED % (AUTO) 100 %; WHITE BLOOD COUNT 9.9 10^3/uL (4.0-10.5)
[2018-04-07 02:56] LABS: ANION GAP 8 (5-19); BLOOD UREA NITROGEN 15 mg/dL (7-20); CALCIUM 8.9 mg/dL (8.4-10.2); CARBON DIOXIDE 29 mmol/L (22-30); CHLORIDE 102 mmol/L (98-107); GLUCOSE 117 mg/dL (75-110); POTASSIUM 3.7 mmol/L (3.6-5.0); SODIUM 139.1 mmol/L (137-145)
[2018-04-07 03:13] LABS: CREATINE KINASE MB < 0.22 ng/mL (<4.55); TROPONIN I < 0.012 ng/mL
[2018-04-07] MEDS ORDERED: (PENDING PHARMACY ID) (Oxycodone Hcl/Acetaminophen [Percocet 10-325 Mg Tablet] 1 TAB) PO PRN (08:32)
[2018-04-07] MEDS ORDERED: (PENDING PHARMACY ID) (Cyclobenzaprine Hcl [Flexeril 5 Mg Tablet] 5 MG) PO PRN (08:32)
[2018-04-07] MEDS ORDERED: CYCLOBENZAPRINE HCL 10 MG TABLET PO PRN (08:52)
[2018-04-07] MEDS ORDERED: LANSOPRAZOLE 30 MG TAB.RAP.DR PO SCH (09:00)
[2018-04-07] MEDS: OXYCODONE HCL IR 5 MG TABLET PO PRN ×2 (09:06→15:14)
[2018-04-07] MEDS: OXYCODONE-ACETAMINOPHEN 5-325 MG TABLET PO PRN ×2 (09:07→15:15)
[2018-04-07 09:25] LABS: CREATINE KINASE MB < 0.22 ng/mL (<4.55); TROPONIN I < 0.012 ng/mL
[2018-04-07] MEDS ORDERED: LISINOPRIL 10 MG TABLET PO SCH (10:00)
[2018-04-07] MEDS ORDERED: METOPROLOL SUCCINATE 25 MG TAB.SR.24H PO SCH (10:00)
[2018-04-07] MEDS ORDERED: ENOXAPARIN SODIUM INJ 40 MG/0.4 ML DISP.SYRIN SUBCUT SCH (10:00)
[2018-04-07] MEDS ORDERED: HYDROCHLOROTHIAZIDE 12.5 MG TABLET PO SCH (10:00)
[2018-04-07] MEDS ORDERED: (PENDING PHARMACY ID) (Lisinopril/Hydrochlorothiazide [Zestoretic 20-12.5 Mg Tablet] 1 TAB PO SCH (10:00)
[2018-04-07] MEDS ORDERED: REGADENOSON INJ 0.4 MG/5 ML DISP.SYRIN IV ONE (12:55)
--- NOTE | 2018-04-07 13:40 | PDOC PROGRESS REPORT ---
Subjective Progress Note for:: 04/07/18 Subjective:: Patient seems to be doing better. Heart rate better with metoprolol. Pt is denying any chest arm or neck discomfort. Patient denying any PND, orthopnea. Patient denied any sustained palpitations, dizziness, syncope, near syncope. Patient denying any fever chills. Patient denying any other significant discomfort. Patient describes significant problems with sleep. This includes snoring, insomnia of sleep onset as well as maintenance. Patient also feels very fatigued and tired. Possibility of narcolepsy, narcolepsy with or without cataplexy cannot be ruled out. Patient is maintaining sinus rhythm. Review of systems: Rest review of systems negative. Medications: Medications have been reviewed. Reason For Visit: SYNCOPE Physical Exam Vital Signs: Temp Pulse Resp BP Pulse Ox 98.7 F 87 18 111/67 100 04/07/18 08:29 04/07/18 08:29 04/07/18 08:29 04/07/18 08:29 04/07/18 08:29 Intake & Output 04/06/18 04/07/18 04/08/18 06:59 06:59 06:59 Intake Total 200 Output Total 0 Balance 200 Weight 70.8 kg Exam: GENERAL: well-nourished and in no acute distress. Alert and oriented x3 HEAD: Atraumatic, normocephalic. EYES: Pupils equal round and reactive to light, extraocular movements intact, sclera anicteric, conjunctiva are normal. ENT: TMs normal, nares patent, oropharynx clear without exudates. Moist mucous membranes. No oral ulcerations or bleeding gums noted NECK: supple without lymphadenopathy. Trachea is central. No cervical or axillary lymphadenopathy noted. Carotids are 2+, JVD WNL LUNGS: Respiration seems nonlabored, no significant accessory muscle action noted. Breath sounds clear to auscultation bilaterally and equal noted. No wheezes rales or rhonchi noted. No significant dullness noted on percussion. CHEST: Palpation of the chest wall shows no significant chest wall tenderness. HEART: [place] [facility] TECH, No PSH, 1/6 MINAL aortic area, 1/6 [place] systolic murmur mitral area, no rubs, no gallops. ABDOMEN: Soft, no significant tenderness appreciated, normoactive bowel sounds. No guarding, no rebound. No rigidity noted . No masses appreciated. EXTREMITIES: Pedal pulses are 1-2+, no calf tenderness noted. No clubbing or cyanosis. negative pedal edema noted NEUROLOGICAL: Focused neurological exam showed no significant neurologic deficit. Normal speech, no focal weakness appreciated. PSYCH: Normal mood, normal affect. Judgment and insight within normal limits. SKIN: No significant ecchymosis, skin is noted to be warm. MUSCULOSKELETAL EXAM: No significant acute joint swelling noted. Results Laboratory Results: 04/07/18 02:35 04/07/18 02:35 04/07/18 04/07/18 02:35 02:35 WBC 9.9 RBC 3.82 Hgb 11.0 L Hct 32.6 L MCV 85 MCH 28.7 MCHC 33.7 RDW 15.0 H Plt Count 368 Seg Neutrophils % 65.0 Lymphocytes % 26.7 Monocytes % 6.0 Eosinophils % 1.6 Basophils % 0.7 Absolute Neutrophils 6.5 Absolute Lymphocytes 2.6 Absolute Monocytes 0.6 Absolute Eosinophils 0.2 Absolute Basophils 0.1 Sodium 139.1 Potassium 3.7 Chloride 102 Carbon Dioxide 29 Anion Gap 8 BUN 15 Creatinine 1.06 Est GFR ( Amer) > 60 Est GFR (Non-Af Amer) 57 L Glucose 117 H Calcium 8.9 04/06/18 04/07/18 04/07/18 20:20 02:35 02:35 Creatine Kinase 27 L CK-MB (CK-2) < 0.22 Troponin I < 0.012 < 0.012 04/07/18 04/07/18 08:25 08:25 Creatine Kinase 26 L CK-MB (CK-2) < 0.22 Troponin I < 0.012 Impressions: Chest X-Ray 04/06/18 16:36 IMPRESSION: NO ACUTE RADIOGRAPHIC FINDING IN THE CHEST. Assessment & Plan - Diagnosis (1) Syncope Qualifiers: Syncope type: unspecified Qualified Code(s): R55 - Syncope and collapse Is this a current diagnosis for this admission?: Yes (2) Sinus tachycardia Is this a current diagnosis for this admission?: Yes (3) Epigastric abdominal pain Is this a current diagnosis for this admission?: Yes - Notes Notes: Syncope: Most likely neurocardiogenic syncope. Nuclear stress test was negative for pharmacologic stress-induced ischemia. EKG gated imaging shows normal LVEF. Sinus tachycardia: Patient has a history of inappropriate sinus tachycardia. Agree with beta-jorge therapy. Recommend that patient continue with metoprolol succinate at 25 mg p.o. twice daily. This can be increased further as tolerated. Hypertension: Currently on lisinopril. Dose could be adjusted as as needed. Sleep disorder: Patient describes history of snoring and difficulty falling asleep and staying asleep. Patient with sleep disorder especially sleep apnea are more prone to have vasovagal syncope and other syncope. Patient has been recommended to pursue a sleep study. This can be performed through my office. Further evaluation can be performed as an outpatient. This can include a tilt table study, and implantable property assessment monitor etc. This can also be arranged through my office. - Time Time with patient: Greater than 35 minutes - Nuclear stress test results were reviewed with the patient. 2D echo is still pending but can be performed as an outpatient if needed. Other evaluation such as tilt table study and possible implantable cardiac event loop monitor can be placed as an outpatient. As usual I thank Dr. Rapp for the kind referral. Medications reviewed and adjusted accordingly: Yes
--- NOTE | 2018-04-07 13:43 | DRAGON STRESS TEST REPORT ---
INTRAVENOUS LEXISCAN CARDIOLITE STRESS TEST USING SINGLE PHOTON EMMISION COMPUTERIZED TOMOGRAPHIC. DATE OF PROCEDURE: April 07, 2018, INDICATION : Chest pain and syncope CARDIAC RISK FACTORS: Hypertension RESTING EKG: Sinus rhythm, no baseline ST-T wave changes are noted STRESS EKG: No significant ST segment changes noted with LexiScan bolus REASON FOR TERMINATION: Protocol. PROCEDURE REPORT: Baseline heart rate 84 beats per minute with blood pressure of 112/71. Patient had no significant complaints. Patient was bolused with Lexiscan 0.4 mg intravenously followed by saline bolus. Heart rate at 2 minutes post bolus 114 with a blood pressure of 101/70. 3 minutes post bolus heart rate 108 with blood pressure of 106/70. No significant EKG changes were noted. Patient had no significant complaints during the procedure or postprocedure. CONCLUSIONS: Normal EKG and hemodynamic response to IV LexiScan. NUCLEAR DATA: At rest the patient was given 10.22 millicuries of technetium 99 sestamibi injected intravenously. As per protocol rest gated SPECT images were obtained. On day of stress test, the patient was given intravenous LexiScan at a dose of 0.4 mg in 5 mL intravenously, followed by flush with normal saline. Subsequently the stress dose of 30.9 millicuries of technetium 99 sestamibi was injected intravenously. As per protocol stress gated images were obtained. NUCLEAR INTERPRETATION: Both raw and processed data were used for interpretation. Visual, qualitative, computer-generated quantitative data was used. There was good myocardial uptake of technetium compound. Motion artifact and soft tissue attenuations were noted. Increased visceral uptake was noted. No definitive areas of transient perfusion defect noted, No definitive areas of fixed perfusion defect or scars noted. However there was significant breast attenuation artifact and also some interference from visceral uptake was noted. EKG gated imaging showed LV EF at 58 %, rest and stress gated EF similar visually. T. I D. ratio was 1.03. Lung heart ratio noted to be within normal limits 0.35. No significant extracardiac and abnormal radiotracer activities were noted. RV free wall uptake was noted to be WNL. IMPRESSION: Also refer to comments under nuclear interpretation. Also test results needs to be interpreted in the context of pretest probability. 1. No definitive areas of transient perfusion defect noted. 2. There is no definitive scintigraphic evidence of myocardial infarction/scar. 3. EKG gated imaging shows left ventricular ejection fraction of approx. 58 %. 4. Clinical correlation requested as worse disease and or balanced ischemia could be missed. In approximately 10% of the cases Lexiscan may not cause adequate vasodilatory stress. RECOMMENDATIONS: Aggressive risk factor modification and medical management. Further evaluation may be needed if continued symptoms or other high risk indicators are noted on clinical evaluation. Close cardiology follow-up is also recommended. Clinical correlation with echocardiogram derived ejection fraction. Inability to exercise by itself can lead to increased cardiovascular event risks. Consider cardiology consultation and or follow-up if clinically indicated. I am available for cardiology evaluation and consultation if requested by the primary care nurse, unless patient already has a heel stiffener. Dr. Vincent Suresh. MRCP Board certified in cardiology and sleep medicine. Board certified in nuclear cardiology, adult echocardiography. [employer]
[2018-04-07 15:59] LABS: CREATINE KINASE MB < 0.22 ng/mL (<4.55); TROPONIN I < 0.012 ng/mL
[2018-04-07 17:59] VITALS: BP 105/63
--- NOTE | 2018-04-07 19:23 | XCELERA REPORT ---
[address] [address] Transthoracic Echocardiogram Report Name: CHRIST HONEYCUTT Age: 43 yrs Gender: Female : 1975 Patient Status: Inpatient Patient Location: [address] [place] [address] Study Date: 04/07/2018 01:43 PM Procedure: A complete two-dimensional transthoracic echocardiogram was performed (2D, M-mode, spectral and color flow Doppler). The study was technically adequate with some images being suboptimal in quality. Reason For Study: Syncope Ordering Physician: KIRAN MORRISON Performed By: Yuly López Interpretation Summary LVEF WNL, LV diastolic function also noted to be WNL. RVEF WNL All chamber sizes WNL No significant valvular regurgitation or stenosis noted. Minimal pericardial effusion noted. MMode/2D Measurements & Calculations RVDd: 2.6 cm LVIDd: 4.7 cm FS: 44.1 % Ao root diam: 2.5 cm IVSd: 0.70 cm LVIDs: 2.6 cm EDV(Teich): 101.5 ml Ao root area: 5.1 cm2 LVPWd: 0.75 cm ESV(Teich): 25.0 ml EF(Teich): 75.4 % Doppler Measurements & Calculations MV E max babar: MV dec slope: Ao V2 max: LV V1 max P.0 cm/sec 121.8 cm/sec 1.5 mmHg MV A max babar: 607.5 cm/sec2 Ao max PG: LV V1 max: 60.7 cm/sec MV dec time: 0.13 sec5.9 mmHg 61.2 cm/sec MV E/A: 1.3 PA V2 max: 81.3 cm/sec PA max P.6 mmHg Left Ventricle The left ventricle is grossly normal size. There is normal left ventricular wall thickness. The left ventricular ejection fraction is normal. Doppler measurements suggest normal left ventricular diastolic function. Wall motion cannot be accurately commented on, but no definite regional wall motion abnormalities noted. Right Ventricle The right ventricle is grossly normal size. There is normal right ventricular wall thickness. The right ventricular systolic function is normal. Atria The right atrium is normal in size. The left atrial size is normal. Interarterial septum not well visualized and not well dopplered. Cannot comment on ASD/PFO presence. Mitral Valve The mitral valve is grossly normal. There is no mitral valve stenosis. There is no mitral regurgitation noted. Aortic Valve The aortic valve is grossly normal. There is no aortic valve stenosis. No aortic regurgitation is present. Tricuspid Valve The tricuspid valve is not well visualized, but is grossly normal. There is no tricuspid stenosis. No tricuspid regurgitation. Pulmonic Valve The pulmonic valve is not well seen, but is grossly normal. There is no pulmonic valvular stenosis. There is a trace or physiologic amount of pulmonic regurgitation. Great Vessels The aortic root is not well visualized but is probably normal size. The inferior vena cava appeared normal and decreased > 50% with respiration (RAP 5-10 mmHg). Effusions Minimal pericardial effusion. : KIRAN MORRISON > Kiran Morrison
--- NOTE | 2018-04-07 20:40 | PDOC H&P ---
History of Present Illness Admission Date/PCP: 04/06/18 17:56 SHEA ALVARADO MD History of Present Illness: CHRSIT HONEYCUTT is a 43 year old female.She has a history of hypertension, she came to the emergency room for evaluation of recurrent syncope, she has history of recurrent syncope with antecedent palpitation, she was evaluated in the past with a 30-day event monitor, she was found to have inappropriate sinus tachycardia.She was supposed to have noninvasive Cardiolite nuclear stress test , she was advised to stop metoprolol in preparation for the stress test. She developed palpitation with associated loss of consciousness, she was admitted for observation, she was seen in the emergency room and evaluated and admission was advised, she was seen by cardiology Dr. Suresh she underwent Cardiolite stress test which was negative a 2D echo was done which was normal Past Medical History Cardiac Medical History: Reports: Hypertension - on meds Endocrine Medical History: Reports: Diabetes Mellitus Type 2 - prediabetic Malignancy Medical History: Reports: Cervical Cancer Psychiatric Medical History: Reports: Depression Hematology: Reports: Anemia Past Surgical History Past Surgical History: Reports: Hysterectomy, Orthopedic Surgery - right shoulder, Tubal Ligation Social History Lives with: Family Smoking Status: Never Smoker Frequency of Alcohol Use: None Hx Recreational Drug Use: No Hx Prescription Drug Abuse: No Family History Family History: Reviewed & Not Pertinent, CAD - Mother of [place] at 56 Parental Family History Reviewed: Yes Children Family History Reviewed: Yes Sibling(s) Family History Reviewed.: Yes Medication/Allergy Home Medications: Amitriptyline HCl [Elavil 25 mg Tablet] 25 mg PO QHS 04/06/18 Cyclobenzaprine HCl [Flexeril 5 mg Tablet] 5 mg PO Q8HP PRN 04/06/18 Linaclotide [Linzess 145 Mcg Capsule] 145 mcg PO DAILY 04/06/18 Oxycodone HCl/Acetaminophen [Percocet 10-325 mg Tablet] 1 tab PO Q6HP PRN Pantoprazole Sodium [Protonix] 40 mg PO DAILY 04/06/18 Quetiapine Fumarate [Seroquel] 200 mg PO QHS 04/06/18 Metoprolol Succinate [Toprol Xl 25 mg Tab.sr] 25 mg PO BID #0 04/07/18 Allergies/Adverse Reactions: atropine Allergy (Severe, Verified 04/06/18 15:35) violent ketorolac [From Toradol] Allergy (Severe, Verified 04/06/18 15:35) tremors midazolam [From Versed] Allergy (Severe, Verified 04/06/18 15:35) violent nalbuphine [From Nubain] Allergy (Severe, Verified 04/06/18 15:35) violent Review of Systems Constitutional: ABSENT: chills, fever(s), headache(s), weight gain, weight loss Eyes: ABSENT: visual disturbances Ears: ABSENT: hearing changes Cardiovascular: PRESENT: palpitations Respiratory: ABSENT: cough, hemoptysis Gastrointestinal: ABSENT: abdominal pain, constipation, diarrhea, hematemesis, hematochezia, nausea, vomiting Genitourinary: ABSENT: dysuria, hematuria Musculoskeletal: ABSENT: joint swelling Integumentary: ABSENT: rash, wounds Neurological: PRESENT: syncope. ABSENT: abnormal gait, abnormal speech, confusion, dizziness, focal weakness Psychiatric: ABSENT: anxiety, depression, homidical ideation, suicidal ideation Endocrine: ABSENT: cold intolerance, heat intolerance, menstrual abnormalities, polydipsia, polyuria Hematologic/Lymphatic: ABSENT: easy bleeding, easy bruising, lymphadenopathy Physical Exam Vital Signs: Temp Pulse Resp BP Pulse Ox 98.8 F 93 18 105/63 100 04/07/18 18:36 04/07/18 18:36 04/07/18 18:36 04/07/18 16:28 04/07/18 18:36 Intake & Output 04/06/18 04/07/18 04/08/18 06:59 06:59 06:59 Intake Total 200 625 Output Total 0 1 Balance 200 624 Weight 70.8 kg General appearance: PRESENT: no acute distress Head exam: PRESENT: atraumatic, normocephalic Eye exam: PRESENT: conjunctiva pink, EOMI, PERRLA Ear exam: PRESENT: normal external ear exam Mouth exam: PRESENT: moist, tongue midline Neck exam: PRESENT: full ROM Respiratory exam: PRESENT: clear to auscultation priscilla Cardiovascular exam: PRESENT: RRR, +S1, +S2 Pulses: PRESENT: normal dorsalis pedis pul, +2 pedal pulses bilateral Vascular exam: PRESENT: normal capillary refill GI/Abdominal exam: PRESENT: normal bowel sounds, soft Rectal exam: PRESENT: deferred Neurological exam: PRESENT: alert, awake, oriented to person, oriented to place , oriented to time, oriented to situation, CN II-XII grossly intact Psychiatric exam: PRESENT: appropriate affect, normal mood Skin exam: PRESENT: dry, intact, warm Results Laboratory Results: 04/07/18 02:35 04/07/18 02:35 04/07/18 04/07/18 02:35 02:35 WBC 9.9 RBC 3.82 Hgb 11.0 L Hct 32.6 L MCV 85 MCH 28.7 MCHC 33.7 RDW 15.0 H Plt Count 368 Seg Neutrophils % 65.0 Lymphocytes % 26.7 Monocytes % 6.0 Eosinophils % 1.6 Basophils % 0.7 Absolute Neutrophils 6.5 Absolute Lymphocytes 2.6 Absolute Monocytes 0.6 Absolute Eosinophils 0.2 Absolute Basophils 0.1 Sodium 139.1 Potassium 3.7 Chloride 102 Carbon Dioxide 29 Anion Gap 8 BUN 15 Creatinine 1.06 Est GFR ( Amer) > 60 Est GFR (Non-Af Amer) 57 L Glucose 117 H Calcium 8.9 04/06/18 04/07/18 04/07/18 20:20 02:35 02:35 Creatine Kinase 27 L CK-MB (CK-2) < 0.22 Troponin I < 0.012 < 0.012 04/07/18 04/07/18 04/07/18 08:25 08:25 15:03 Creatine Kinase 26 L 30 CK-MB (CK-2) < 0.22 Troponin I < 0.012 04/07/18 15:03 Creatine Kinase CK-MB (CK-2) < 0.22 Troponin I < 0.012 Impressions: Chest X-Ray 04/06/18 16:36 IMPRESSION: NO ACUTE RADIOGRAPHIC FINDING IN THE CHEST. Assessment & Plan - Diagnosis (1) Syncope Qualifiers: Syncope type: unspecified Qualified Code(s): R55 - Syncope and collapse Is this a current diagnosis for this admission?: Yes Plan: She probably have neurocardiogenic syncope, she would need outpatient tilt table test she was brought in for observation and evaluation
--- NOTE | 2018-04-07 20:43 | PDOC DISCHARGE SUMMARY ---
General - Admit/Disc Date/PCP Admission Date/Primary Care Provider: 04/06/18 17:56 SHEA ALVARADO MD Discharge Date: 04/07/18 - Discharge Diagnosis (1) Syncope Is this a current diagnosis for this admission?: Yes - Additional Information Discharge Diet: As Tolerated Discharge Activity: Activity As Tolerated Home Medications: Amitriptyline HCl [Elavil 25 mg Tablet] 25 mg PO QHS 04/06/18 Cyclobenzaprine HCl [Flexeril 5 mg Tablet] 5 mg PO Q8HP PRN 04/06/18 Linaclotide [Linzess 145 Mcg Capsule] 145 mcg PO DAILY 04/06/18 Oxycodone HCl/Acetaminophen [Percocet 10-325 mg Tablet] 1 tab PO Q6HP PRN Pantoprazole Sodium [Protonix] 40 mg PO DAILY 04/06/18 Quetiapine Fumarate [Seroquel] 200 mg PO QHS 04/06/18 Metoprolol Succinate [Toprol Xl 25 mg Tab.sr] 25 mg PO BID #0 04/07/18 History of Present Illness History of Present Illness: CHRIST HONEYCUTT is a 43 year old female.She has a history of hypertension, she came to the emergency room for evaluation of recurrent syncope, she has history of recurrent syncope with antecedent palpitation, she was evaluated in the past with a 30-day event monitor, she was found to have inappropriate sinus tachycardia.She was supposed to have noninvasive Cardiolite nuclear stress test , she was advised to stop metoprolol in preparation for the stress test. She developed palpitation with associated loss of consciousness, she was admitted for observation, she was seen in the emergency room and evaluated and admission was advised, she was seen by cardiology Dr. Suresh she underwent Cardiolite stress test which was negative a 2D echo was done which was normal Hospital Course Hospital Course: Patient was brought in for observation and evaluation, a Cardiolite stress test was done negative, 2D echo was done normal, outpatient tilt table test will be ordered, she may need EP study.Medication was adjusted she is advised to stop lisinopril she will take metoprolol twice a day Physical Exam Vital Signs: Temp Pulse Resp BP Pulse Ox 98.8 F 93 18 105/63 100 04/07/18 18:36 04/07/18 18:36 04/07/18 18:36 04/07/18 16:28 04/07/18 18:36 Intake & Output 04/06/18 04/07/18 04/08/18 06:59 06:59 06:59 Intake Total 200 625 Output Total 0 1 Balance 200 624 Weight 70.8 kg General appearance: PRESENT: no acute distress, well-developed, well-nourished Head exam: PRESENT: atraumatic, normocephalic Eye exam: PRESENT: conjunctiva pink, EOMI, PERRLA Ear exam: PRESENT: normal external ear exam Mouth exam: PRESENT: moist, tongue midline Neck exam: PRESENT: full ROM Respiratory exam: PRESENT: clear to auscultation priscilla Cardiovascular exam: PRESENT: RRR, +S1, +S2 Pulses: PRESENT: normal dorsalis pedis pul, +2 pedal pulses bilateral Vascular exam: PRESENT: normal capillary refill GI/Abdominal exam: PRESENT: normal bowel sounds, soft Rectal exam: PRESENT: deferred Neurological exam: PRESENT: alert, awake, oriented to person, oriented to place , oriented to time, oriented to situation, CN II-XII grossly intact Psychiatric exam: PRESENT: appropriate affect, normal mood Skin exam: PRESENT: dry, intact, warm Results Laboratory Results: 04/07/18 02:35 04/07/18 02:35 04/07/18 04/07/18 02:35 02:35 WBC 9.9 RBC 3.82 Hgb 11.0 L Hct 32.6 L MCV 85 MCH 28.7 MCHC 33.7 RDW 15.0 H Plt Count 368 Seg Neutrophils % 65.0 Lymphocytes % 26.7 Monocytes % 6.0 Eosinophils % 1.6 Basophils % 0.7 Absolute Neutrophils 6.5 Absolute Lymphocytes 2.6 Absolute Monocytes 0.6 Absolute Eosinophils 0.2 Absolute Basophils 0.1 Sodium 139.1 Potassium 3.7 Chloride 102 Carbon Dioxide 29 Anion Gap 8 BUN 15 Creatinine 1.06 Est GFR ( Amer) > 60 Est GFR (Non-Af Amer) 57 L Glucose 117 H Calcium 8.9 04/06/18 04/07/18 04/07/18 20:20 02:35 02:35 Creatine Kinase 27 L CK-MB (CK-2) < 0.22 Troponin I < 0.012 < 0.012 04/07/18 04/07/18 04/07/18 08:25 08:25 15:03 Creatine Kinase 26 L 30 CK-MB (CK-2) < 0.22 Troponin I < 0.012 04/07/18 15:03 Creatine Kinase CK-MB (CK-2) < 0.22 Troponin I < 0.012 Impressions: Chest X-Ray 04/06/18 16:36 IMPRESSION: NO ACUTE RADIOGRAPHIC FINDING IN THE CHEST. Qualifiers - * PATIENT BEING DISCHARGED WITH ANY OF THE FOLLOWING DIAGNOSIS: No
[2018-04-07] MEDS ORDERED: QUETIAPINE FUMARATE 100 MG TABLET PO SCH ×2 (22:00)
[2018-04-07] MEDS ORDERED: AMITRIPTYLINE HCL 25 MG TABLET PO SCH (22:00)
[2018-04-07] MEDS ORDERED: (PENDING PHARMACY ID) (Quetiapine Fumarate [Seroquel] 200 MG) PO SCH (22:00)
== END 2018-04-07 19:10 | disposition home or self-care (01) ==
LOC: ER 15:32 → EH 17:56 → INTOOBSV 17:56 → 3N 21:27
PROVIDERS: ADMIT Internal Medicine; ATTEND Internal Medicine
DX: R55 Syncope and collapse (principal); I10 Essential (primary) hypertension; R00.0 Tachycardia, unspecified; R11.0 Nausea; R07.9 Chest pain, unspecified; R06.09 Other forms of dyspnea; R00.2 Palpitations; R10.13 Epigastric pain; G47.9 Sleep disorder, unspecified; R06.83 Snoring; G47.00 Insomnia, unspecified; Z85.41 Personal history of malignant neoplasm of cervix uteri; Z79.899 Other long term (current) drug therapy; Z90.710 Acquired absence of both cervix and uterus; Z98.51 Tubal ligation status; Z82.49 Family history of ischemic heart disease and other diseases of the circulatory system
CPT/HCPCS: 93005; 99285; 36415 ×2; 82553 ×2; 82550 ×2; 85025 ×2; 85610; 80048; 80053; 84484 ×2; 93306; 93017; 71045; 78452; 93010; G0378 ×2; A9500; J2785; J1650; Q9969

== ENCOUNTER 2018-05-26 14:01 | Emergency (ER) | payer BC ==
--- NOTE | 2018-05-26 15:00 | ER Document Report ---
ED Medical Screen (RME) - General Chief Complaint: Chest Pain Stated Complaint: CHEST PAIN Time Seen by Provider: 05/26/18 14:55 Notes: 43 years old female with a history of cardiac arrhythmias on metoprolol presents today with substernal chest pain and chest tightness just prior to arrival. She was shopping at that time. Not associated with any nausea vomiting palpitation or diaphoresis. Denies any left arm numbness tingling sensation. Discomfort is not persistent with on and off. When he comes on its very severe according to her. No history of any asthma non-smoker. TRAVEL OUTSIDE OF THE [place] IN LAST 30 DAYS: No - Related Data Allergies/Adverse Reactions: atropine Allergy (Severe, Verified 05/26/18 14:04) violent ketorolac [From Toradol] Allergy (Severe, Verified 05/26/18 14:04) tremors midazolam [From Versed] Allergy (Severe, Verified 05/26/18 14:04) violent nalbuphine [From Nubain] Allergy (Severe, Verified 05/26/18 14:04) violent Past Medical History - Social History Frequency of alcohol use: None Drug Abuse: None - Past Medical History Cardiac Medical History: Reports: Hx Hypertension Denies: Hx Coronary Artery Disease, Hx Heart Attack Pulmonary Medical History: Denies: Hx Asthma, Hx Bronchitis, Hx COPD, Hx Pneumonia Neurological Medical History: Denies: Hx Cerebrovascular Accident, Hx Seizures Endocrine Medical History: Reports: Hx Diabetes Mellitus Type 2 - prediabetic Renal/ Medical History: Denies: Hx Peritoneal Dialysis Malignancy Medical History: Reports: Hx Cervical Cancer GI Medical History: Denies: Hx Liver Failure Musculoskeltal Medical History: Denies Hx Arthritis Psychiatric Medical History: Reports: Hx Depression Past Surgical History: Reports: Hx Hysterectomy, Hx Oral Surgery - wisdom teeth , Hx Orthopedic Surgery - right shoulder, Hx Tubal Ligation - Immunizations Immunizations up to date: Yes Hx Diphtheria, Pertussis, Tetanus Vaccination: No History of Influenza Vaccine for 03/2017 - 08/2017 Season: No Physical Exam - Vital signs Vitals: Temp Pulse Resp BP Pulse Ox 98.8 F 91 18 139/92 H 100 05/26/18 14:02 05/26/18 14:02 05/26/18 14:02 05/26/18 14:02 05/26/18 14:02 Course - Vital Signs Vital signs: Temp Pulse Resp BP Pulse Ox 98.8 F 91 18 139/92 H 100 05/26/18 14:02 05/26/18 14:02 05/26/18 14:02 05/26/18 14:02 05/26/18 14:02 Doctor's Discharge - Discharge Referrals: SHEA ALVARADO MD [Primary Care Provider] - Follow up as needed
--- NOTE | 2018-05-26 15:31 | ER Document Report ---
ED Cardiac - General Chief Complaint: Chest Pain Stated Complaint: CHEST PAIN Time Seen by Provider: 05/26/18 14:55 Mode of Arrival: Ambulatory Information source: Patient TRAVEL OUTSIDE OF THE [place] IN LAST 30 DAYS: No - HPI Notes: 43-year-old female with medical history of Terry's palsy, HTN, type 2 diabetes, cervical Ca, COPD and amenia presents to the ED with complaints of sudden onset substernal chest pain described as tightness that radiates to her back approximately 45 minutes ago. Pain comes and goes, sharp and stabbing denies any radiation to jaw or arm. Does have a history of rapid heartbeat, is currently on Lopressor. Patient did have a negative echocardiogram, stress test in March 2018. Patient was just seen by Dr. Suresh, assistant front end manager, on May 24 and stated that she may need a bubble test to look for valve dysfunction. Non-smoker. Denies fevers, chills,palpitations, shortness of breath, dyspnea, nausea, vomiting, diarrhea, abdominal pain, hematuria, blurred vision, double vision, loss of vision, speech changes, LH, dizziness, syncope, headaches, wheezing, ST, URI, neck pain, weakness, bowel or bladder dysfunction, saddle anesthesia, numbness or tingling in bilateral upper or lower extremities equally, muscle paralysis, weakness in bilateral upper or lower extremities equally or rash. Denies IV drug use. - Related Data Allergies/Adverse Reactions: atropine Allergy (Severe, Verified 05/26/18 14:04) violent ketorolac [From Toradol] Allergy (Severe, Verified 05/26/18 14:04) tremors midazolam [From Versed] Allergy (Severe, Verified 05/26/18 14:04) violent nalbuphine [From Nubain] Allergy (Severe, Verified 05/26/18 14:04) violent Past Medical History - General Information source: Patient - Social History Smoking Status: Never Smoker Frequency of alcohol use: None Drug Abuse: None Family History: Reviewed & Not Pertinent, CAD - Mother of [place] at 56 Patient has suicidal ideation: No Patient has homicidal ideation: No - Past Medical History Cardiac Medical History: Reports: Hx Hypertension Denies: Hx Coronary Artery Disease, Hx Heart Attack Pulmonary Medical History: Denies: Hx Asthma, Hx Bronchitis, Hx COPD, Hx Pneumonia Neurological Medical History: Denies: Hx Cerebrovascular Accident, Hx Seizures Endocrine Medical History: Reports: Hx Diabetes Mellitus Type 2 - prediabetic Renal/ Medical History: Denies: Hx Peritoneal Dialysis Malignancy Medical History: Reports: Hx Cervical Cancer GI Medical History: Denies: Hx Liver Failure Musculoskeletal Medical History: Denies Hx Arthritis Psychiatric Medical History: Reports: Hx Depression Past Surgical History: Reports: Hx Hysterectomy, Hx Oral Surgery - wisdom teeth , Hx Orthopedic Surgery - right shoulder, Hx Tubal Ligation - Immunizations Immunizations up to date: Yes Hx Diphtheria, Pertussis, Tetanus Vaccination: No Review of Systems - Review of Systems Constitutional: No symptoms reported EENT: No symptoms reported Cardiovascular: See HPI Respiratory: No symptoms reported Gastrointestinal: No symptoms reported Genitourinary: No symptoms reported Female Genitourinary: No symptoms reported Musculoskeletal: No symptoms reported Skin: No symptoms reported Hematologic/Lymphatic: No symptoms reported Neurological/Psychological: No symptoms reported Physical Exam - Vital signs Vitals: Temp Pulse Resp BP Pulse Ox 98.8 F 91 18 139/92 H 100 05/26/18 14:02 05/26/18 14:02 05/26/18 14:02 05/26/18 14:02 05/26/18 14:02 - Notes Notes: PHYSICAL EXAMINATION: GENERAL: Well-appearing, well-nourished and in no acute distress. HEAD: Atraumatic, normocephalic. EYES: Pupils equal round and reactive to light, extraocular movements intact, sclera anicteric, conjunctiva are normal. ENT: nares patent, oropharynx clear without exudates. Moist mucous membranes. NECK: Normal range of motion, supple without lymphadenopathy LUNGS: Breath sounds clear to auscultation bilaterally and equal. No wheezes rales or rhonchi. HEART: Regular rate and rhythm without murmurs ABDOMEN: Soft, nontender, normoactive bowel sounds. No guarding, no rebound. No masses appreciated. EXTREMITIES: Normal range of motion, no pitting or edema. No cyanosis. NEUROLOGICAL: No focal neurological deficits. Moves all extremities spontaneously and on command. noted left facial droop. PERRLA, EOMI. Full motor and sensory function throughout. Animal Care Attendant + 2 equal bilaterally in BUE. Tongue midline. No pronator drift. No ataxia. Neck with APROM. Raises eyebrows. Strength is 5 out of 5 in bilateral upper and lower extremities equally.Speaks in full sentences. No weakness on one side. Romberg gait steady able to walk straight line. PSYCH: Normal mood, normal affect. SKIN: Warm, Dry, normal turgor, no rashes or lesions noted. Course - Re-evaluation Re-evalutation: 05/26/18 17:31 Febrile, vitals stable and in no distress 43-year-old female with a history of syncopal events and rapid heart rate presents to the ED for substernal chest pain that radiates to her back. Patient states pain is 4 out of 10, has been constant since 1:45 PM today. Denies any radiation to her jaw, shoulder, denies any numbness or tingling in bilateral extremities. Has not tried anything [id number]. Denies any trauma to chest. Denies any difficulty breathing, shortness of breath or dyspnea, denies any pedal edema. Initial troponin less than 0.012, EKG negative for acute STEMI, heart rate in the 88. Patient given first dose of nitro, states did not relieve her pain, second dose given, states she is unsure chest pain did have relief. Vitals remained stable. CBC negative for leukocytosis or anemia, CMP negative for hepatic or renal dysfunction, no electrolyte deficiencies. Consulted with Dr. Alvarado at 1730 regarding angina with negative troponin, minimal chest pain relieved with nitro, normal EKG as well as recent negative stress test and echocardiogram done in March 2018, Dr. Alvarado did not feel like this was an ischemic event, does not warrant cardiac observation, states he will see patient in the office tomorrow morning. Second set of troponin pending and if negative, there is a low probability of MACE along with heart score. Presentation of chest pain in an otherwise well appearing patient. Low clinical suspicion for ACS given clinical history, exam, EKG without ST elevations or depressions, and negative initial troponin. HEART score less than or equal to 3. PE also seems unlikely given clinical history, absence of tachycardia or dyspnea. Patient is PERC criteria negative. CXR without evidence of pneumothorax or pneumonia. No widened mediastinum. Aortic dissection also seems unlikely given history, symmetric pulses, CXR, and vitals. Heart score is 3, which has a low risk of 0.9-1.7% MACE. Chest pain in a patient without evidence of cardiac or other serious etiology on workup today. I discussed with patient that, based on their age, risk factors and emergency department testing today, the likelihood that their symptoms are related to a heart attack is very low ( estimated risk of heart attack or over the next 30 days of less than 1%). The patient demonstrates decision making capacity and has verbalized an understanding of these risks to me. Usual chest pain return precautions reviewed. The patient states understanding and agreement with this plan if her second troponin is negative. [place] [address]/26/18 18:15 - Vital Signs Vital signs: Temp Pulse Resp BP Pulse Ox 98.8 F 91 18 139/92 H 99 05/26/18 14:02 05/26/18 14:02 05/26/18 14:02 05/26/18 14:02 05/26/18 15:51 - Laboratory Result Diagrams: 05/26/18 15:46 05/26/18 15:46 Laboratory results interpreted by me: 05/26/18 05/26/18 15:46 15:46 WBC 10.7 H Hgb 11.8 L Hct 35.6 L RDW 14.8 H Est GFR (Non-Af Amer) 55 L - EKG Interpretation by Me EKG shows normal: Sinus rhythm Rate: Normal Discharge - Discharge Clinical Impression: Chest pain Condition: Stable Disposition: HOME, SELF-CARE Instructions: Aspirin (Cardiac) (OM), Chest Pain of Unclear Cause (OM), Nitrates (OM) Additional Instructions: You were seen today for chest pain. The exact cause of your pain is unclear. However, based on your cardiac enzyme testing, chest x-ray, and EKG it does not appear that it is from an immediately life-threatening cause at this time. Although your testing here is normal is critical that you follow-up with your primary care physician for continued evaluation of this chest pain and possible stress testing. I recommended you Dr. Alvarado or tomorrow in his office for re-evaluation. Since stress test, echocardiogram were negative, not following with a assistant front end manager. Please return to emergency department immediately if you have worsening of your chest pain, shortness of breath, vomiting, become unable to exert yourself due to pain or difficulty breathing, you pass out, or have any pain that radiates into your arms, jaw, or back. Please also return if you have any additional symptoms that are concerning to you. Return immediately for any new or worsening symptoms. Follow up with primary care provider, call tomorrow to make followup appointment. Referrals: SHEA ALVARADO MD [Primary Care Provider] - Follow up tomorrow (morning )
[2018-05-26] MEDS ORDERED: NITROGLYCERIN 0.4 MG/TAB 25 TAB/BOTTLE SL ONE ×2 (15:57→16:54)
[2018-05-26 16:06] LABS: ABSOLUTE BASOPHILS # (AUTO) 0.1 10^3/uL (0.0-0.2); ABSOLUTE EOSINOPHILS # (AUTO) 0.1 10^3/uL (0.0-0.6); ABSOLUTE LYMPHOCYTES (AUTO) 2.6 10^3/uL (0.5-4.7); ABSOLUTE MONOCYTES (AUTO) 0.7 10^3/uL (0.1-1.4); ABSOLUTE NEUT (AUTO) 7.2 10^3/uL (1.7-8.2); BASOPHILS % (AUTO) 0.6 % (0-2); EOSINOPHILS % (AUTO) 1.2 % (0-6); HEMATOCRIT 35.6 % (36.0-47.0); HEMOGLOBIN 11.8 g/dL (12.0-15.5); LYMPHOCYTES % (AUTO) 24.6 % (13-45); MEAN CORPUSCULAR HEMOGLOBIN 27.9 pg (27.0-33.4); MEAN CORPUSCULAR HGB CONC 33.1 g/dL (32.0-36.0); MEAN CORPUSCULAR VOLUME 84 fl (80-97); MONOCYTES % (AUTO) 6.6 % (3-13); PLATELET COUNT 402 10^3/uL (150-450); RED BLOOD COUNT 4.21 10^6/uL (3.72-5.28); RED CELL DISTRIBUTION WIDTH 14.8 % (11.5-14.0); TOTAL CELLS COUNTED % (AUTO) 100 %; WHITE BLOOD COUNT 10.7 10^3/uL (4.0-10.5)
--- NOTE | 2018-05-26 16:15 | RADIOLOGY REPORT (SQ) ---
EXAM DESCRIPTION: CHEST SINGLE VIEW COMPLETED DATE/TIME: 05/26/2018 4:06 pm REASON FOR STUDY: Chest pain COMPARISON: 04/06/2018 EXAM PARAMETERS: NUMBER OF VIEWS: One view. TECHNIQUE: Single frontal radiographic view of the chest acquired. RADIATION DOSE: NA LIMITATIONS: None. FINDINGS: LUNGS AND PLEURA: No opacities, masses or pneumothorax. No pleural effusion. MEDIASTINUM AND HILAR STRUCTURES: No masses. Contour normal. HEART AND VASCULAR STRUCTURES: Heart normal in size. Normal vasculature. BONES: No acute findings. HARDWARE: None in the chest. OTHER: No other significant finding. IMPRESSION: NO ACUTE RADIOGRAPHIC FINDING IN THE CHEST. TECHNICAL DOCUMENTATION: JOB ID: [id number] [employer]- All Rights Reserved Reading location - IP/workstation name: [email or web address]
[2018-05-26] MEDS ORDERED: NORMAL SALINE 500 ML IV PRN (16:20)
[2018-05-26] MEDS ORDERED: ASPIRIN 81 MG TABLET, CHEWABLE PO ONE (16:21)
[2018-05-26 16:30] LABS: ALANINE AMINOTRANSFERASE 12 U/L (9-52); ALBUMIN 3.9 g/dL (3.5-5.0); ALKALINE PHOSPHATASE 90 U/L (38-126); ANION GAP 10 (5-19); ASPARTATE AMINO TRANSFERASE 26 U/L (14-36); BILIRUBIN,DIRECT 0.3 mg/dL (0.0-0.4); BILIRUBIN,TOTAL 0.4 mg/dL (0.2-1.3); BLOOD UREA NITROGEN 16 mg/dL (7-20); CALCIUM 8.9 mg/dL (8.4-10.2); CARBON DIOXIDE 30 mmol/L (22-30); CHLORIDE 102 mmol/L (98-107); CREATINE KINASE 38 U/L (30-135); GLUCOSE 104 mg/dL (75-110); POTASSIUM 3.9 mmol/L (3.6-5.0); SODIUM 141.8 mmol/L (137-145); TOTAL PROTEIN 7.5 g/dL (6.3-8.2)
[2018-05-26 16:43] LABS: CREATINE KINASE MB < 0.22 ng/mL (<4.55); TROPONIN I < 0.012 ng/mL
[2018-05-26 20:18] VITALS: BP 120/91
--- NOTE | 2018-05-26 22:39 | EKG REPORT ---
SEVERITY:- NORMAL ECG - SINUS RHYTHM : Confirmed by: Kiran Suresh 26-May-2018 22:38:39
== END 2018-05-26 20:18 | disposition home or self-care (01) ==
LOC: ER 14:01
DX: R07.9 Chest pain, unspecified (principal); I10 Essential (primary) hypertension; E11.9 Type 2 diabetes mellitus without complications; J44.9 Chronic obstructive pulmonary disease, unspecified; D64.9 Anemia, unspecified; R55 Syncope and collapse; Z90.710 Acquired absence of both cervix and uterus
CPT/HCPCS: 93005; 99285; 96360; 36415; 82553; 82550; 85025; 80053; 84484; 71045; 93010; J7040

== ENCOUNTER 2018-08-27 11:49 | Emergency (ER) | payer BC ==
[2018-08-27] MEDS ORDERED: OXYCODONE-ACETAMINOPHEN 5-325 MG TABLET PO ONE (12:49)
[2018-08-27] MEDS ORDERED: LIDOCAINE 5% (700 MG) TRANSDERMAL ADH..PATCH TP ONE (12:50)
--- NOTE | 2018-08-27 12:50 | ER Document Report ---
HPI - HPI Patient complains to provider of: left shoulder pain Time Seen by Provider: 08/27/18 12:33 Onset: Other - 5 days ago Onset/Duration: Persistent Quality of pain: Sharp Pain Level: 4 Context: Patient states she was walking downstairs and slipped almost falling. Patient states that she grabbed the handrail with her left arm and felt a pop in her left shoulder. Patient complains of persistent pain since then. Associated Symptoms: Other - Left shoulder joint pain Exacerbated by: Movement Relieved by: Denies Similar symptoms previously: Yes Recently seen / treated by doctor: No - ROS ROS below otherwise negative: Yes Systems Reviewed and Negative: Yes All other systems reviewed and negative - CONSTITUTIONAL Constitutional: DENIES: Fever, Chills - NEURO Neurology: DENIES: Headache, Weakness - GASTROINTESTINAL Gastrointestinal: DENIES: Nausea - REPRODUCTIVE Reproductive: DENIES: : - MUSCULOSKELETAL Musculoskeletal: REPORTS: Extremity pain. DENIES: Neck Pain - DERM Skin Color: Normal Skin Problems: None Past Medical History - General Information source: Patient - Social History Smoking Status: Never Smoker Frequency of alcohol use: None Drug Abuse: None Occupation: None Family History: Reviewed & Not Pertinent, CAD - Mother of [place] at 56 - Past Medical History Cardiac Medical History: Reports: Hx Hypertension Endocrine Medical History: Reports: Hx Diabetes Mellitus Type 2 - prediabetic Renal/ Medical History: Denies: Hx Peritoneal Dialysis Malignancy Medical History: Reports: Hx Cervical Cancer GI Medical History: Reports: Hx Gastroesophageal Reflux Disease. Denies: Hx Liver Failure Musculoskeletal Medical History: Denies Hx Arthritis Psychiatric Medical History: Reports: Hx Depression Past Surgical History: Reports: Hx Hysterectomy, Hx Oral Surgery - wisdom teeth, Hx Orthopedic Surgery - right shoulder, Hx Tubal Ligation - Immunizations Immunizations up to date: Yes Hx Diphtheria, Pertussis, Tetanus Vaccination: No Vertical Provider Document - CONSTITUTIONAL Agree With Documented VS: Yes Exam Limitations: No Limitations General Appearance: WD/WN, No Apparent Distress - INFECTION CONTROL TRAVEL OUTSIDE OF THE [place] IN LAST 30 DAYS: No - HEENT HEENT: Atraumatic, Normocephalic - NECK Neck: Normal Inspection, Supple. negative: Lymphadenopathy-Left, Lymphadenopathy-Right - RESPIRATORY Respiratory: Breath Sounds Normal, No Respiratory Distress - CARDIOVASCULAR Cardiovascular: Regular Rate, Regular Rhythm, No Murmur Pulses: Normal: Radial - BACK Back: Normal Inspection - MUSCULOSKELETAL/EXTREMETIES Musculoskeletal/Extremeties: MAEW, Tender - Left shoulder joint tenderness over left shoulder AC joint tenderness, no deformity no dislocation. Normal skin color and temperature overlying joint. Tenderness increases with extension and abduction. - NEURO Level of Consciousness: Awake, Alert, Appropriate Motor/Sensory: No Motor Deficit, No Sensory Deficit - DERM Integumentary: Warm, Dry Course - Re-evaluation Re-evalutation: 08/27/18 13:43 Patient with avulsion fracture noted on x-ray, will treat pain symptoms with a short course of medicine and encourage outpatient follow-up with orthopedics. - Vital Signs Vital signs: Temp Pulse Resp BP Pulse Ox 98.8 F 94 16 122/69 100 08/27/18 11:54 08/27/18 11:54 08/27/18 11:54 08/27/18 11:54 08/27/18 11:54 - Diagnostic Test Radiology reviewed: Pending, Image reviewed Procedures - Immobilization Left Shoulder Pre-Proc Neuro Vasc Exam: Normal Immobilizer type: Sling Performed by: PCT Post-Proc Neuro Vasc Exam: Normal Alignment checked and good: Yes Discharge - Discharge Clinical Impression: Avulsion fracture Sprain of left shoulder Qualifiers: Encounter type: initial encounter Shoulder sprain type: unspecified sprain Qualified Code(s): S43.402A - Unspecified sprain of left shoulder joint, initial encounter Condition: Stable Disposition: HOME, SELF-CARE Instructions: Avulsion Fracture ([facility]), Ice & Elevation ([facility]), Shoulder Injury ([facility]), Sling as Treatment ([facility]) Additional Instructions: Return immediately for any new or worsening symptoms Followup with your primary care provider, call tomorrow to make a followup appointment Wear sling while awake only for the next 4 days. Follow-up with orthopedics for any persistent pain or problems Take your baclofen as prescribed Prescriptions: Lidocaine [Lidoderm 5% (700 mg) Transdermal Patch] 1 patch TP DAILY PRN #7 adh..patch PRN Reason: Oxycodone HCl/Acetaminophen [Percocet 5-325 mg Tablet] 1 tab PO ASDIR PRN #8 tablet PRN Reason: Referrals: SHEA ALVARADO MD [Primary Care Provider] - Follow up as needed [facility] [Provider Group] - 08/29/18
--- NOTE | 2018-08-27 13:40 | RADIOLOGY REPORT (SQ) ---
EXAM DESCRIPTION: SHOULDER LEFT 2 OR MORE VIEWS COMPLETED DATE/TIME: 08/27/2018 1:24 pm REASON FOR STUDY: fall, piedad L shoulder . Fell down the steps. COMPARISON: Left shoulder x-ray 07/04/2017. NUMBER OF VIEWS: Three views. TECHNIQUE: Internal rotation, external rotation, and Y view images acquired of the left shoulder. LIMITATIONS: None. FINDINGS: MINERALIZATION: Normal. BONES: No acute fracture or dislocation at the proximal humerus. There is a 2 mm linear calcific dens ity adjacent to the distal clavicle. There is no significant widening of the acromioclavicular joint . VISUALIZED LUNGS AND RIBS: No pneumothorax. No displaced rib fracture. SOFT TISSUES: No radiopaque foreign body. IMPRESSION: 2 mm linear calcific density adjacent to the distal clavicle, may represent a small avul cynthia fracture. TECHNICAL DOCUMENTATION: JOB ID: [id number] [employer]- All Rights Reserved Reading location - IP/workstation name: [email or web address]
[2018-08-27 14:03] VITALS: BP 126/66
== END 2018-08-27 14:03 | disposition home or self-care (01) ==
LOC: ER 11:49
DX: T14.8XXA Other injury of unspecified body region, initial encounter (principal); S43.402A Unspecified sprain of left shoulder joint, initial encounter; M25.512 Pain in left shoulder; W18.40XA Slipping, tripping and stumbling without falling, unspecified, initial encounter; I10 Essential (primary) hypertension; Z85.41 Personal history of malignant neoplasm of cervix uteri
CPT/HCPCS: 99283